=== PATIENT | female | born 1960 | race Hispanic/Latino ===

== ENCOUNTER → 2018-07-24 | Day surgery (SDC) | payer OTHER ==
[2018-07-20 17:46] LABS: ANION GAP 17.1 mmol/L (8-16); BLOOD UREA NITROGEN 13 mg/dL (7-26); BUN/CREATININE RATIO 16 (6-25); CARBON DIOXIDE 25 mmol/L (22-29); CHLORIDE 103 mmol/L (98-107); CREATININE, SERUM 0.79 mg/dL (0.57-1.11); EST GLOMERULAR FILTRATION RATE > 60 ML/MIN (60-); GLUCOSE 107 mg/dL (74-118); POTASSIUM 4.1 mmol/L (3.5-5.1); SODIUM 141 mmol/L (136-145)
[~2018-07-24] MED LIST: ALPRAZOLAM0.25 MG PO; ATORVASTATIN CA10 MG PO; BUPIVACAINE 0.25% 30ML SDV INJ ONE; CHLORDIAZEPOXID25 MG PO; CITALOPRAM; CITALOPRAM HBR20 MG PO; CLINDAMYCIN PHOS 900MG/ 50ML 50 ML IV ONE; DEXAMETHASONE SOD PHOS INJ 4 MG/ML VIAL ONE; DICYCLOMINE; DICYCLOMINE HCL10 MG PO; ELIQUIS PO; FARXIGA PO; FENOFIBRATE; FENOFIBRATE160 MG PO; FENTANYL CITRATE/PF 100MCG/2 ML INJ ONE; GABAPENTIN300 MG PO; JANUVIA25 MG; KETAMINE HCL INJ 50 MG/ML 10 ML VIAL ONE; LEXAPRO10 MG PO; LIDOCAINE HCL 2% LOCAL INJ 5 ML SDV VIAL INJ ONE; MIDAZOLAM HCL 2 MG/2 ML VIAL ONE; MUPIROCIN 2% OINT 22 GM TUBE ONE; ONDANSETRON HCL INJ 2MG/ML 2ML 2 MG/ML VIAL ONE; OXCARBAZEPINE300 MG PO; PRAVASTATIN; PRAVASTATIN PO; PROPOFOL IV EMULSION 10 MG/ML 20 ML VIAL ONE; TRAJENTA PO; [UNRECOGNIZED DRUG - OTHER]; [UNRECOGNIZED DRUG - OTHER] PO; [UNRECOGNIZED DRUG - OTHER] PO
--- OUTSIDE RECORDS SUMMARY | 2018-07-24 06:28 | XMS REPORT | Summary of Care ---
Author Author [facility] Address Unknown Phone Unavailable Encounter HQ Encntr_alias(FIN) [id number] Date(s): 11/29/15 - 11/29/15 [facility] [id number] [facility], [address] [place] [phone] Discharge Disposition: Home Attending Physician: Kenan Riggs MD Vital Signs No data available for this section Problem List No data available for this section Allergies, Adverse Reactions, Alerts No data available for this section Medications No data available for this section Results No data available for this section Immunizations No data available for this section Procedures No data available for this section Social History No data available for this section Assessment and Plan No data available for this section
--- OUTSIDE RECORDS SUMMARY | 2018-07-24 06:28 | XMS REPORT | Continuity of Care Document ---
Author Author [facility] Interface Address Unknown Phone Unavailable Problems Problem Status Onset Date Classification Date Reported Comments Source LT SHOULDER/RTC Active 04/30/2018 [facility] Cough 04/06/2018 Diagnosis 04/07/2018 [facility] Acute sinusitis 04/06/2018 Diagnosis 04/07/2018 [facility] Deep Venous Thrombosis 04/06/2018 Problem 04/07/2018 [facility] DX: I82.423=ACUTE EMBOLISM AND THROMBOSI Active 08/20/2017 [facility] Acute embolism and thrombosis of unspecified deep veins of lower extremity, bilateral 06/14/2017 09/16/2017 [facility] I82.409 *STAT* Active 06/10/2017 [facility] I82.423 NEW RIGHT LEG PAIN Active 02/28/2017 [facility] Discharge Diagnosis: Dyspnea, unspecified 12/23/2016 12/26/2016 [facility] CP Active 12/23/2016 [facility] LEG PAIN Active 11/27/2016 [facility] DVT LOWER EXT, PAIN Active 11/27/2016 [facility] Acute upper respiratory infection 11/01/2016 Diagnosis 11/01/2016 [facility] M25.531 - PAIN IN RIGHT WRIST Active 11/13/2015 [facility] Type II diabetes mellitus Active 1960 Problem 10/10/2017 [facility] Hyperlipidemia Resolved Problem 10/10/2017 [facility] Acute Suppurative Otitis Media without Spontaneous Rupture of Ear Drum Problem 11/01/2016 [facility] Acute Sinusitis Problem 11/01/2016 [facility] Acute Laryngitis Problem 11/01/2016 [facility] Acute Bronchitis Problem 11/01/2016 [facility] Allergic Rhinitis Problem 11/01/2016 [facility] NECK PAIN Active [facility] RT WRIST PAIN, SPRAIN Active [facility] ACUTE EMBOLISM AND THOMBOS UNSP DEEP VN Active [facility] PAIN, UNSPECIFIED Active [facility] Medications Medication Details Route Status Patient Instructions Ordering Provider Order Date Source Xarelto 15 mg, 1 tab, Route: PO, Drug form: TAB, Q12H, Dosing Weight 85.966, kg, Start date: 11/29/16 9:00:00 CDT, Stop date: 12/28/16 12:30:00 CDTNotes: (Same as: Xarelto) Administer with food Inactive 11/29/2016 [facility] tramadol hydrochloride 50 MG Oral Tablet 50 mg=1 tab, PO, Q6H, PRN Pain, X 5 day, # 20 tab, 0 Refill(s) Active 11/29/2016 [facility] {42 (rivaroxaban 15 MG Oral Tablet [Xarelto]) / 9 (rivaroxaban 20 MG Oral Tablet [Xarelto]) } Pack [Xarelto Kit] 1 tab, PO, BID-Meals, Take 15 mg tablets twice daily with food for 21 days. Beginning day 22,take one 20 mg tablet daily with food for the remainder of therapy., X 30 day, # 1 pkt, 0 Refill(s) Active 11/29/2016 [facility] Miralax 17 gm, 1 pkt, Route: PO, Drug form: PWDR, Daily, Dosing Weight 85.966, kg, Start date: 11/28/16 9:00:00 CDT, Duration: 30 day, Stop date: 12/27/16 9:00:00 CDTNotes: Dissolve in 8 oz of water or juice. (Same as: Miralax) No Longer Active 11/28/2016 [facility] Citalopram 30 mg, 3 tab, Route: PO, Drug form: TAB, Daily, Dosing Weight 85.455, kg, Start date: 11/28/16 9:00:00 CDT, Duration: 30 day, Stop date: 12/27/16 9:00:00 CDT No Longer Active 11/28/2016 [facility] Acetaminophen 325 MG / Hydrocodone Bitartrate 7.5 MG Oral Tablet [[place] 7.5/325] 1 tab, Route: PO, Drug Form: TAB, Dosing Weight 85.966, kg, Q6H, PRN Pain Score 6-10, Start date: 11/27/16 21:12:00 CDT, Duration: 30 day, Stop date: 12/27/16 21:11:00 CDTNotes: Same as [place] 325-7.5mg Do not exceed 4gm/day of acetaminophen. No Longer Active 11/28/2016 [facility] Morphine 2 mg, 1 mL, Route: IV, Drug form: SOLN, Q4H, Dosing Weight 85.966, kg, PRN Pain Score 6-10, Start date: 11/27/16 21:12:00 CDT, Duration: 30 day, Stop date: 12/27/16 21:11:00 CDT No Longer Active 11/28/2016 [facility] atorvastatin 80 mg, 2 tab, Route: PO, Drug form: TAB, Bedtime, Dosing Weight 85.455, kg, Start date: 11/27/16 21:00:00 CDT, Duration: 30 day, Stop date: 12/26/16 21:00:00 CDTNotes: (Same as: Lipitor) No Longer Active 11/28/2016 [facility] Acetaminophen 325 MG / Hydrocodone Bitartrate 5 MG Oral Tablet [[place] 5/325] 1 tab, Route: PO, Drug Form: TAB, Dosing Weight 85.966, kg, Q4H, PRN Pain Score 1-5, Start date: 11/27/16 17:13:00 CDT, Duration: 30 day, Stop date: 12/27/16 17:12:00 CDTNotes: (Same as: [place] 325/5) Do not exceed 4gm/day of acetaminophen. Inactive 11/27/2016 [facility] Tegretol 300 mg, 1.5 tab, Route: PO, Drug form: TAB, BID, Dosing Weight 85.455, kg, Start date: 11/27/16 17:00:00 CDT, Duration: 30 day, Stop date: 12/27/16 9:00:00 CDTNotes: With food. (Same As: Tegretol) No Longer Active 11/27/2016 [facility] Insulin regular 5 unit, Route: SUB-Q, TID-Before Meals, Dosing Weight 85.455, kg, Start date: 11/27/16 16:30:00 CDT, Duration: 30 day, Stop date: 12/27/16 11:30:00 CDT Inactive 11/27/2016 [facility] insulin aspart 5 unit, 0.05 mL, Route: SUB-Q, Drug form: SOLN, TID-Before Meals, Start date: 11/27/16 16:30:00 CDT, Duration: 30 day, Stop date: 12/27/16 11:30:00 CDTNotes: Roll in palms of hands gently; Do not sh gene vigorously. (Same as: NovoLOG) "single patient use only" WASTE: F/P - Black; E - Municipal Trash Bin Stable for 28 days at room temperature. Expires in days from Date No Longer Active 11/27/2016 [facility] Chlordiazepoxide Hydrochloride 5 MG / Clidinium bromide 2.5 MG Oral Capsule 2 cap, Route: PO, Drug Form: CAP, Dosing Weight 85.455, kg, TID-Before Meals, Start date: 11/27/16 16:30:00 CDT, Duration: 30 day, Stop date: 12/27/16 11:30:00 CDTNotes: (Same As: Librax) No Longer Active 11/27/2016 [facility] Enoxaparin 80 mg, 0.8 mL, Route: SUB-Q, Drug form: INJ, [id number], Dosing Weight 85.455, kg, Start date: 11/27/16 15:00:00 CDT, Duration: 30 day, Stop date: 12/27/16 2:00:00 CDTNotes: Nurse to ensure documentation of patient education per anticoagulation policy. (Same as: Lovenox) No Longer Active 11/27/2016 [facility] Insulin, Aspart, Human 10 unit, 0.1 mL, Route: SUB-Q, Drug form: SOLN, TID-Before Meals, Dosing Weight 85.455, kg, PRN Blood Glucose Results, Start date: 11/27/16 14:07:00 CDT, Duration: 30 day, Stop date: 12/27/16 14:06:00 CDTNotes: Roll in palms of hands gently; Do not shake vigorously. (Same as: NovoLOG) "single patient use only" WASTE: F/P - Black; E - Municipal Trash Bin Stable for 28 days at room temperature. Expires in days from Date No Longer Active 11/27/2016 [facility] Glucagon 1 mg, Route: IM, Drug form: PDR/INJ, PRN, Dosing Weight 85.455, kg, PRN Blood Glucose Results, Start date: 11/27/16 14:07:00 CDT, Duration: 30 day, Stop date: 12/27/16 14:06:00 CDT No Longer Active 11/27/2016 [facility] Dextrose 50% Syringe 12.5 gm, 25 mL, Route: IVP, Drug Form: INJ, Dosing Weight 85.455, kg, PRN, PRN Blood Glucose Results, Start date: 11/27/16 14:07:00 CDT, Duration: 30 day, Stop date: 12/27/16 14:06:00 CDT No Longer Active 11/27/2016 [facility] empagliflozin 10 MG / Linagliptin 5 MG Oral Tablet [Glyxambi] 1 tab, PO, QAM, 0 Refill(s) Active 11/27/2016 [facility] Citalopram 30 mg, PO, Daily, 0 Refill(s) Active 11/27/2016 [facility] atorvastatin 80 mg oral tablet 80 mg=1 tab, PO, Bedtime, 0 Refill(s) Active 11/27/2016 [facility] Tegretol 300 mg, PO, BID, 0 Refill(s) Active 11/27/2016 [facility] Chlordiazepoxide Hydrochloride 5 MG / Clidinium bromide 2.5 MG Oral Capsule 2 cap, PO, TID-Before Meals, 0 Refill(s) Active 11/27/2016 [facility] Lovenox 90 mg, 0.9 mL, Route: SUB-Q, Drug form: INJ, ONCE, Dosing Weight 85.455, kg, Priority: STAT, Start date: 11/27/16 13:20:00 CDT, Stop date: 11/27/16 13:20:00 CDTNotes: Nurse to ensure documentation of patient education per anticoagulation policy. (Same as: Lovenox) Inactive 11/27/2016 [facility] Morphine 4 mg, Route: IVP, ONCE, Dosing Weight 85.455, kg, Priority: STAT, Start date: 11/27/16 11:44:00 CDT, Stop date: 11/27/16 11:44:00 CDT Inactive 11/27/2016 [facility] Zofran 4 mg, Route: IVP, Drug form: INJ, ONCE, Dosing Weight 85.455, kg, Priority: STAT, Start date: 11/27/16 9:45:00 CDT, Stop date: 11/27/16 9:45:00 CDT Inactive 11/27/2016 [facility] Morphine 4 mg, Route: IVP, ONCE, Dosing Weight 85.455, kg, Priority: STAT, Start date: 11/27/16 9:45:00 CDT, Stop date: 11/27/16 9:45:00 CDT Inactive 11/27/2016 [facility] Alprazolam 0.25 MG Oral Tablet alprazolam 0.25 mg tablet Active [facility] atorvastatin 80 MG Oral Tablet atorvastatin 80 mg tablet Active [facility] Chlordiazepoxide Hydrochloride 5 MG / Clidinium bromide 2.5 MG Oral Capsule chlordiazepoxide-clidinium 5 mg-2.5 mg capsule TAKE ONE CAPSULE BY MOUTH EVERY 6 HOURS Active [facility] Diclofenac Sodium 15 MG/ML Topical Solution diclofenac 1.5 % topical drops Active [facility] apixaban 5 MG Oral Tablet [Eliquis] Eliquis 5 mg tablet TAKE ONE (1) TABLET(S) BY MOUTH TWICE A DAY. Active [facility] [id number] 0.3 ML Epinephrine 1 MG/ML Auto-Injector [Epipen] EpiPen 2-Danny 0.3 mg/0.3 mL injection, auto-injector Active [facility] Escitalopram 20 MG Oral Tablet escitalopram 20 mg tablet Active [facility] dapagliflozin 5 MG Oral Tablet [Farxiga] Farxiga 5 mg tablet TAKE ONE (1) TABLET(S) BY MOUTH DAILY. Active [facility] Fluticasone propionate 0.05 MG/ACTUAT Metered Dose Nasal [place] fluticasone 50 mcg/actuation nasal spray,suspension Inhale 2 sprays to each nostril 2 x day at bedtime x 10 days Active [facility] gabapentin 300 MG Oral Capsule gabapentin 300 mg capsule TAKE ONE (1) CAPSULE(S) BY MOUTH THREE TIMES A DAY. Active [facility] empagliflozin 10 MG Oral Tablet [Jardiance] Jardiance 10 mg tablet Active [facility] OneTouch Ultra Test strips OneTouch Ultra Test strips Active [facility] oxcarbazepine 300 MG Oral Tablet oxcarbazepine 300 mg tablet TAKE ONE (1) TABLET(S) BY MOUTH TWICE A DAY. Active [facility] benzonatate 100 MG Oral Capsule [Tessalon Perles] Tessalon Perles 100 mg capsule Take 2 capsules 3 times a day by oral route as needed for 10 days. Active [facility] Linagliptin 5 MG Oral Tablet [Tradjenta] Tradjenta 5 mg tablet TAKE ONE (1) TABLET(S) BY MOUTH DAILY. Active [facility] tramadol hydrochloride 50 MG Oral Tablet tramadol 50 mg tablet TAKE ONE (1) TABLET(S) BY MOUTH TWICE A DAY. Active [facility] Desonide 0.5 MG/ML Topical Foam [Verdeso] Verdeso 0.05 % topical foam APPLY A THIN LAYER TO FACE EVERY NIGHT AT BEDTIME FOR SEBORRHEA Active [facility] Azithromycin 250 MG Oral Tablet Zithromax Z-Danny 250 mg tablet TAKE 2 TABLETS (500 MG) BY ORAL ROUTE ONCE DAILY FOR 1 DAY THEN 1 TABLET (250 MG) BY ORAL ROUTE ONCE DAILY FOR 4 DAYS Active [facility] benzonatate 100 MG Oral Capsule benzonatate 100 mg capsule Take 1 capsule 3 times a day by oral route as needed. Active [facility] benzonatate 200 MG Oral Capsule benzonatate 200 mg capsule TAKE ONE (1) CAPSULE(S) BY MOUTH THREE TIMES A DAY NEEDED. Active [facility] Brompheniramine Maleate 0.4 MG/ML / Dextromethorphan Hydrobromide 2 MG/ML / Pseudoephedrine Hydrochloride 6 MG/ML Oral Solution [Bromfed DM] Bromfed DM 2 mg-30 mg-10 mg/5 mL syrup Take 10 mL every 4 hours by oral route as needed. Active [facility] Carbamazepine 200 MG Oral Tablet carbamazepine 200 mg tablet Active [facility] Citalopram 40 MG Oral Tablet [Celexa] Celexa 40 mg tablet Active [facility] Citalopram 20 MG Oral Tablet citalopram 20 mg tablet Active [facility] gabapentin 100 MG Oral Capsule gabapentin 100 mg capsule Active [facility] empagliflozin 10 MG / Linagliptin 5 MG Oral Tablet [Glyxambi] Glyxambi 10 mg-5 mg tablet TAKE ONE (1) TABLET(S) BY MOUTH EVERY MORNING. Active [facility] levocetirizine dihydrochloride 5 MG Oral Tablet levocetirizine 5 mg tablet TAKE ONE (1) TABLET(S) BY MOUTH EVERY DAY AT BEDTIME FOR 14 DAYS. Active [facility] Naproxen 500 MG Oral Tablet naproxen 500 mg tablet Active [facility] Budesonide 0.16 MG/ACTUAT / formoterol fumarate 0.0045 MG/ACTUAT Metered Dose Inhaler Symbicort 160 mcg-4.5 mcg/actuation HFA aerosol inhaler Active [facility] Allergies, Adverse Reactions, Alerts Substance Category Reaction Severity Reaction type Status Date Reported Comments Source Amoxicillin Allergy to substance 04/20/2015 [facility] amoxicillin Assertion Drug allergy Active [facility] Immunizations Immunization Date Given Site Status Last Updated Comments Source influenza, injectable, quadrivalent 03/23/2018 completed [facility] influenza, unspecified formulation 03/02/2016 completed [facility] Tdap 06/02/2011 completed [facility] Results Order Name Results Value Reference Range Date Interpretation Comments Source Bone Density DXA Dual Energy MA Bone Density DXA Dual Energy MA BONE DENSITY ASSESSMENT: 05/05/2018 CLINICAL DATA: Post menopausal. Other Specified Disorders Of Bone Density And Structure, Unspecified Site/M85.80 RISK FACTORS: race. FINDINGS: Bone density evaluation was performed 05/05/2018 on the right femur neck using a Hologic unit. The BMD average for the exam is 0.671 g/cm2. The T-score is - 1.60 and the Z-score is -0.40. This matches the World Health Organization's criteria for osteopenia and places the patient at a medium risk for fracture. An additional bone density evaluation was performed 05/05/2018 on the left femur neck using a Hologic unit. The BMD average for the exam is 0.669 g/cm2. The T- score is -1.60 and the Z-score is -0.40. This matches the World Health Organization's criteria for osteopenia and places the patient at a medium risk for fracture. An additional bone density evaluation was performed 05/05/2018 on the right hip using a Hologic unit. The BMD average for the exam is 0.778 g/cm2. The T-score is -1.30 and the Z-score is -0.50. This matches the World Health Organization's criteria for osteopenia and places the patient at a medium risk for fracture. An additional bone density evaluation was performed 05/05/2018 on the left hip using a Hologic unit. The BMD average for the exam is 0.801 g/cm2. The T-score is -1.20 and the Z-score is -0.30. This matches the World Health Organization's criteria for osteopenia and places the patient at a medium risk for fracture. An additional bone density evaluation was performed 05/05/2018 on the AP L1-L4 region of spine using a Hologic unit. The BMD average for the exam is 0.850 g/cm2. The T-score is -1.80 and the Z-score is -0.50. This matches the World Health Organization's criteria for osteopenia and places the patient at a medium risk for fracture. FRAX 10 year probability of major osteoporotic fracture is 7.6% and hip fracture is 0.7%. IMPRESSION: OSTEOPENIA Patient is at medium risk for fracture. This exam was interpreted at [id number] for JACQUIE Hoyos 15. Douglas Zarco M.D. cm/penrad:05/05/2018 14:25:50 Statement Clerks Supervisor(s): Suyapa BERRY(R)(M), [facility] 05/05/2018 - - Read by: Eliud Abarca MD Dictated Date/time: 05/05/18 14:25 Electronically Signed by: Eliud Abarca MD 05/05/18 14:25 FINAL REPORT [facility] Shoulder series DX Shoulder series DX EXAM: XR LEFT SHOULDER 3 VIEWS DATE: 04/28/2018 11:02 AM ENTERPRISE SOFTWARE ENGINEER INDICATION: - M75.82 Other shoulder lesions, left shoulder COMPARISON: None. TECHNIQUE: AP views in internal and external rotation, and a scapular Y view of the shoulder FINDINGS: No fracture or malalignment is identified. The humeral head is centered within the glenoid fossa. The AC joint and CC interval are congruent. Mild diffuse osteopenia. Mild degenerative changes of acromioclavicular joint. No soft tissue abnormality is identified. IMPRESSION: No acute findings. 04/28/2018 - - This report was dictated by a Pathology Collector/Fellow/Physician Motor Grader Operator. I have personally reviewed the images as well as the interpretation and agree with the findings. Read by: Mary Maharaj MD Resident/Fellow/Physician Motor Grader Operator: Mary Maharaj MD Dictated Date/time: 04/28/18 11:27 Electronically Signed by: Mu Duff MD 04/28/18 13:24 FINAL REPORT [facility] Ext Lower Venous Doppler Bilat US Ext Lower Venous Doppler Bilat US Clinical Indication: - I82.423 Acute embolism and thrombosis of iliac vein, bilateral; Comparison: None TECHNIQUE: Sonographic evaluation of the bilateral common femoral, superficial femoral, popliteal, and posterior tibial/calf veins veins was performed using high resolution B-mode imaging, along with pulse and color Doppler imaging. FINDINGS: Mildly echogenic, non-occlusive thrombus remains in the common femoral vein extending into the superior segment of the greater saphenous vein. The burden of thrombus appears decreased. Normal compressibility, phasic flow, and variation with augmentation is seen in the remaining interrogated veins. No echogenic thrombus is appreciated. IMPRESSION: 1. 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 A portion of nonocclusive DVT extends to the superior segment of the greater saphenous vein. 2. No acute DVT of the bilateral legs. JACQUIE: [id number] 10/07/2017 - - Read by: Moe Cagle MD Dictated Date/time: 10/07/17 14:05 Electronically Signed by: Moe Cagle MD 10/07/17 14:10 FINAL REPORT [facility] Ext Lower Venous Doppler Bilat US Ext Lower Venous Doppler Bilat US Exam: Ext Lower Venous Doppler Bilat US Clinical Indication: - DVT. Comparison: 02/28/2017. TECHNIQUE: Sonographic evaluation of the bilateral lower extremity veins was performed using high resolution B-mode imaging, along with pulse and color Doppler imaging. FINDINGS: Right lower extremity: The common femoral vein, superficial femoral vein, popliteal vein and visualized posterior tibial/calf veins are patent. There is no echogenic debris to suggest deep venous thrombosis. The saphenofemoral junction is unremarkable. Left lower extremity: Multiple echogenic thrombus within the left common femoral vein. The vein is patent with color flow noted. The appearance is similar to the previous exam. The Superficial femoral vein, popliteal vein and visualized posterior tibial/calf veins are patent. There is no echogenic debris to suggest deep venous thrombosis. The saphenofemoral junction is unremarkable. IMPRESSION: 1. Echogenic thrombus within the left common femoral vein, unchanged from the previous study. Otherwise unremarkable bilateral lower extremity venous duplex examination. REFERENCE: Deep veins include: common femoral vein, superficial femoral vein (also can be referred to as "femoral vein"), popliteal vein, posterior tibial vein Superficial veins include: greater and lesser saphenous veins SL: MGLASER-M 06/10/2017 - - Read by: Сергей Narvaez MD Dictated Date/time: 06/10/17 16:39 Electronically Signed by: Сергей Narvaez MD 06/10/17 16:41 FINAL REPORT [facility] Ext Lower Venous Doppler Bilat US Ext Lower Venous Doppler Bilat US Patient Name: CHEKO MACHADO : 1960; Age: 57 years y/o Female MR: [id number] * BILATERAL LOWER EXTREMITY VENOUS DOPPLER HISTORY: Right lower extremity pain, history of deep venous thrombosis. Comparison: 11/27/2016. A computed tomography scan of the abdomen and pelvis of 11/27/2016 was reviewed. TECHNIQUE: Sonographic evaluation of the bilateral lower extremity veins was performed from the popliteal fossa to the inguinal ligament using high resolution grayscale B- mode imaging, along with pulse (spectral) and color Doppler imaging. FINDINGS: * Right lower extremity: There is a small amount of thrombus within the upper portion of the right greater saphenous vein. This may represent residual thrombosis the patient had thrombus throughout the right greater saphenous vein of 11/27/2016. There is no evidence of deep venous thrombosis on the right. The patient previously had deep venous thrombosis in the right common femoral vein and proximal and mid right superficial femoral vein which appears to have resolved without sequela. The right common femoral vein, superficial femoral vein, popliteal vein and visualized posterior tibial/calf veins are patent and compressible with good flow. There is good spontaneous phasic venous flow with good augmentation with calf compression. This constitutes a normal examination. * Left lower extremity: There is thrombus within the upper portion of the left greater saphenous vein. This may represent the residual of previous thrombus which involves a more extensive area of the left greater saphenous vein. There is also a small amount of thrombus extending into the left common femoral vein. This also appears to be the sequela of previous venous thrombosis in this region as a similar amount of thrombus was noted in this region on the prior study. The remainder of the left common femoral vein, the left superficial femoral vein, popliteal vein and visualized posterior tibial/calf veins are patent and compressible with good flow. There is good spontaneous phasic venous flow with good augmentation with calf compression. 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 Please refer to that report. IMPRESSION: 1. Thrombus noted within the right deep venous system on the prior study 11/27/2016 has resolved without evidence of sequela. 2. There is a small amount of thrombus extending into the left common femoral vein from the saphenofemoral junction which appears similar to the prior study. The remainder of the deep venous system is patent. 3. There is a small amount of thrombus within each greater saphenous vein which appears to represent an improvement from the prior study and therefore probably represents residual thrombus which has not lysed. 4. There is no definite evidence of acute deep venous thrombosis. 5. 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 Please refer to that report. SL: DEJAN 02/28/2017 - - Read by: Jamar Maza MD Dictated Date/time: 02/28/17 18:23 Electronically Signed by: Jamar Maza MD 02/28/17 18:35 FINAL REPORT [facility] URINE AND STOOL UA Urobilinogen <=1.0 mg/dL 0.1 - 1.0 12/24/2016 [facility] URINE AND STOOL UA Nitrite Negative (12/23/16 7:19 PM) Negative 12/24/2016 [facility] URINE AND STOOL UA Leuk Est Negative (12/23/16 7:19 PM) Negative 12/24/2016 [facility] URINE AND STOOL UA Sq Epi Occasional /LPF Few /LPF 12/24/2016 [facility] URINE AND STOOL UA WBC null 0 - 5 12/24/2016 [facility] URINE AND STOOL UA Bili Negative *NA* (12/23/16 7:19 PM) Negative 12/24/2016 [facility] URINE AND STOOL UA Blood Negative (12/23/16 7:19 PM) Negative 12/24/2016 [facility] URINE AND STOOL UA Ketones Negative mg/dL Negative mg/dL 12/24/2016 [facility] URINE AND STOOL UA Glucose 500 mg/dL Negative mg/dL 12/24/2016 [facility] URINE AND STOOL UA Protein Negative mg/dL Negative mg/dL 12/24/2016 [facility] URINE AND STOOL UA pH 6.0 5.0 - 8.0 12/24/2016 [facility] URINE AND STOOL UA Color Ltyellow 12/24/2016 [facility] URINE AND STOOL UA Spec Grav 1.022 <=1.030 12/24/2016 [facility] URINE AND STOOL UA Turbidity Clear (12/23/16 7:19 PM) Clear 12/24/2016 [facility] CARDIAC ENZYMES Troponin-I 0.03 ng/mL 0.00 - 0.40 12/23/2016 [facility] CHEM PANEL ALT 73 unit/L 0 - 65 12/23/2016 [facility] CHEM PANEL Total Protein 8.0 g/dL 6.4 - 8.4 12/23/2016 [facility] CHEM PANEL AST 69 unit/L 0 - 37 12/23/2016 [facility] CHEM PANEL Albumin Lvl 4.4 g/dL 3.5 - 5.0 12/23/2016 [facility] CHEM PANEL Alk Phos 137 unit/L 39 - 136 12/23/2016 [facility] CHEM PANEL Bili Total 0.5 mg/dL 0.2 - 1.3 12/23/2016 [facility] CHEM PANEL BUN 10 mg/dL 7 - 12/23/2016 [facility] CHEM PANEL Creatinine Lvl 0.82 mg/dL 0.50 - 1.40 12/23/2016 [facility] CHEM PANEL Glucose Lvl 126 mg/dL 70 - 99 12/23/2016 [facility] CHEM PANEL Calcium Lvl 9.8 mg/dL 8.5 - 10.5 12/23/2016 [facility] CHEM PANEL CO2 29 meq/L 24 - 32 12/23/2016 [facility] CHEM PANEL Chloride Lvl 106 meq/L 95 - 109 12/23/2016 [facility] CHEM PANEL Potassium Lvl 3.9 meq/L 3.5 - 5.1 12/23/2016 [facility] CHEM PANEL Sodium Lvl 145 meq/L 135 - 145 12/23/2016 [facility] CHEM PANEL eGFR 80 mL/min/1.73m2 12/23/2016 Result Comment: The eGFR is calculated using the CKD-EPI formula. In most young, healthy individuals the eGFR will be >90 mL/min/1.73m2. The eGFR declines with age. An eGFR of 60-89 may be normal in some populations, particularly the elderly, for whom the CKD-EPI formula has not been extensively validated. Use of the eGFR is not recommended in the following populations: Individuals with unstable creatinine concentrations, including patients and those with serious co-morbid conditions. Patients with extremes in muscle mass or diet. The data above are obtained from the National Kidney Disease Education Program (NKDEP) which additionally recommends that when the eGFR is used in patients with extremes of body mass index for purposes of drug dosing, the eGFR should be multiplied by the estimated BMI. [facility] CHEM PANEL B/C Ratio 12 6 - 25 12/23/2016 [facility] CHEM PANEL Globulin 3.6 g/dL 2.7 - 4.2 12/23/2016 [facility] CHEM PANEL AGAP 13.9 meq/L 10.0 - 20.0 12/23/2016 [facility] CHEM PANEL A/G Ratio 1.2 0.7 - 1.6 12/23/2016 [facility] HEMATOLOGY PTT 34.6 s 22.9 - 35.8 12/23/2016 [facility] PT 13.1 s 12.0 - 14.7 12/23/2016 [facility] INR 0.97 0.85 - 1.17 12/23/2016 [facility] Basophils 0.4 % 0.0 - 1.0 12/23/2016 [facility] Segs-Bands # 3.3 K/CMM 1.5 - 8.1 12/23/2016 [facility] Lymphocytes # 2.6 K/CMM 1.0 - 5.5 12/23/2016 [facility] Monocytes # 0.4 K/CMM 0.0 - 0.8 12/23/2016 [facility] Eosinophils # 0.1 K/CMM 0.0 - 0.5 12/23/2016 [facility] Segs 51.4 % 45.0 - 75.0 12/23/2016 [facility] Lymphocytes 40.5 % 20.0 - 40.0 12/23/2016 [facility] Eosinophils 1.5 % 0.0 - 4.0 12/23/2016 [facility] Monocytes 6.2 % 2.0 - 12.0 12/23/2016 [facility] Hct 44.2 % 36.0 - 48.0 12/23/2016 [facility] Hgb 14.6 g/dL 12.0 - 16.0 12/23/2016 [facility] RBC 4.84 M/CMM 4.20 - 5.40 12/23/2016 [facility] WBC 6.4 K/CMM 3.7 - 10.4 12/23/2016 [facility] Platelet 185 K/CMM 133 - 450 12/23/2016 [facility] MCH 30.2 pg 27.0 - 31.0 12/23/2016 [facility] MCV 91.4 fL 80.0 - 98.0 12/23/2016 [facility] MCHC 33.1 g/dL 32.0 - 36.0 12/23/2016 [facility] RDW 13.5 % 11.5 - 14.5 12/23/2016 [facility] MPV 7.5 fL 7.4 - 10.4 12/23/2016 [facility] Chest Pulmonary Embolism CTA Chest Pulmonary Embolism CTA CTA PULMONARY ARTERIES AND ROUTINE CT CHEST HISTORY: ; Shortness of breath; TECHNIQUE: Thin collimation axial images of the pulmonary arteries and routine CT chest with IV contrast. Coronal and sagittal reformatted images were utilized. 3-D reconstructions were obtained. COMPARISON: Chest radiography dated 12/23/2016 FINDINGS: Examination limited by respiratory motion artifact. No evidence of pulmonary embolism. Thoracic aorta demonstrates mild calcification but is otherwise normal. No mediastinal mass, fluid collection, or adenopathy. Heart size normal. No pericardial effusion. Lungs are clear. No pleural effusion or pneumothorax. Visualized portion of the upper abdominal contents is normal. The osseous structures are unremarkable. IMPRESSION: 1. Examination limited by respiratory motion artifact. 2. No evidence of pulmonary embolism. 3. Normal study. JACQUIE: MARS 12/23/2016 - - Read by: Kenan Estrada MD Dictated Date/time: 12/23/16 20:43 Electronically Signed by: Kenan Estrada MD 12/23/16 20:47 FINAL REPORT [facility] Chest 2 views DX Chest 2 views DX Patient Name: CHEKO MACHADO : 1960; Age: 56 years Female MR: [id number] Study: Chest 2 views DX Order Time: 12/23/2016 2:28 PM CDT CLINICAL INDICATION: Cough and fever - sob COMPARISON: Chest radiograph on 04/02/2016 FINDINGS: Lines: None. Lungs: The lungs are grossly clear. Mediastinum: The cardiac silhouette is within normal limits of size. Midline trachea. Bones and soft tissues: No acute abnormalities. IMPRESSION: No acute cardiopulmonary abnormalities. SL: [id number] 12/23/2016 - - Read by: Cruz Alfaro MD Dictated Date/time: 12/23/16 14:42 Electronically Signed by: Cruz Alfaro MD 12/23/16 14:42 FINAL REPORT [facility] Lymphocytes 35.4 % 20.0 - 40.0 11/28/2016 [facility] Monocytes 6.2 % 2.0 - 12.0 11/28/2016 [facility] Eosinophils 2.7 % 0.0 - 4.0 11/28/2016 [facility] Basophils 0.3 % 0.0 - 1.0 11/28/2016 [facility] Segs 55.4 % 45.0 - 75.0 11/28/2016 [facility] Segs-Bands # 3.0 K/CMM 1.5 - 8.1 11/28/2016 [facility] Lymphocytes # 1.9 K/CMM 1.0 - 5.5 11/28/2016 [facility] Monocytes # 0.3 K/CMM 0.0 - 0.8 11/28/2016 [facility] Eosinophils # 0.1 K/CMM 0.0 - 0.5 11/28/2016 [facility] WBC 5.3 K/CMM 3.7 - 10.4 11/28/2016 [facility] MCH 31.1 pg 27.0 - 31.0 11/28/2016 [facility] MCHC 33.2 g/dL 32.0 - 36.0 11/28/2016 [facility] MPV 7.5 fL 7.4 - 10.4 11/28/2016 [facility] Hct 37.5 % 36.0 - 48.0 11/28/2016 [facility] MCV 93.5 fL 80.0 - 98.0 11/28/2016 [facility] Hgb 12.5 g/dL 12.0 - 16.0 11/28/2016 [facility] RBC 4.01 M/CMM 4.20 - 5.40 11/28/2016 [facility] Platelet 161 K/CMM 133 - 450 11/28/2016 [facility] RDW 13.6 % 11.5 - 14.5 11/28/2016 [facility] Lup Interp Negative for lupus anticoagulant by DRVV screen and hexagonal phospholipidneutralization test. If there is a strong clinical suspicion of lupus anticoagulant,additional testing, to include repeat studies at a clinically appropriate interval and anticardiolipin antibody assays, is recommended.Interpretation performed at [facility]. 11/28/2016 [facility] Hex Phos N Negative (11/28/16 3:59 AM) Negative 11/28/2016 [facility] HEMATOLOGY dRVV Ratio 1.09 <=1.20 11/28/2016 [facility] IMMUNOLOGY Homocyst Tot 9.0 umol/L 3.7 - 13.9 11/28/2016 [facility] IMMUNOLOGY Cardiolipin IgM 1.2 MPL-U/mL <=19.9 MPL 11/28/2016 [facility] IMMUNOLOGY Cardiolipin IgA 0.9 APL-U/mL <=19.9 APL 11/28/2016 [facility] Cardiolipin IgG null <=19.9 GPL 11/28/2016 [facility] URINE AND STOOL UA Sq Epi Occasional /LPF Few /LPF 11/27/2016 [facility] URINE AND STOOL UA Blood Negative (11/27/16 9:36 AM) Negative 11/27/2016 [facility] URINE AND STOOL UA Nitrite Negative (11/27/16 9:36 AM) Negative 11/27/2016 [facility] URINE AND STOOL UA Leuk Est Negative (11/27/16 9:36 AM) Negative 11/27/2016 [facility] URINE AND STOOL UA Glucose 500 mg/dL Negative mg/dL 11/27/2016 [facility] URINE AND STOOL UA Ketones Negative mg/dL Negative mg/dL 11/27/2016 [facility] URINE AND STOOL UA Bili Negative *NA* (11/27/16 9:36 AM) Negative 11/27/2016 [facility] URINE AND STOOL UA Protein Negative mg/dL Negative mg/dL 11/27/2016 [facility] URINE AND STOOL UA Turbidity Clear (11/27/16 9:36 AM) Clear 11/27/2016 [facility] URINE AND STOOL UA Spec Grav 1.037 <=1.030 11/27/2016 [facility] URINE AND STOOL UA pH 6.0 5.0 - 8.0 11/27/2016 [facility] URINE AND STOOL UA Urobilinogen <=1.0 mg/dL 0.1 - 1.0 11/27/2016 [facility] URINE AND STOOL UA Color Ltyellow 11/27/2016 [facility] CHEM PANEL Lipase Lvl 161 unit/L 73 - 393 11/27/2016 [facility] CHEM PANEL A/G Ratio 1.2 0.7 - 1.6 11/27/2016 [facility] CHEM PANEL B/C Ratio 13 6 - 25 11/27/2016 [facility] CHEM PANEL AGAP 13.6 meq/L 10.0 - 20.0 11/27/2016 [facility] CHEM PANEL Globulin 3.5 g/dL 2.7 - 4.2 11/27/2016 [facility] CHEM PANEL eGFR 73 mL/min/1.73m2 11/27/2016 Result Comment: The eGFR is calculated using the CKD-EPI formula. In most young, healthy individuals the eGFR will be >90 mL/min/1.73m2. The eGFR declines with age. An eGFR of 60-89 may be normal in some populations, particularly the elderly, for whom the CKD-EPI formula has not been extensively validated. Use of the eGFR is not recommended in the following populations: Individuals with unstable creatinine concentrations, including patients and those with serious co-morbid conditions. Patients with extremes in muscle mass or diet. The data above are obtained from the National Kidney Disease Education Program (NKDEP) which additionally recommends that when the eGFR is used in patients with extremes of body mass index for purposes of drug dosing, the eGFR should be multiplied by the estimated BMI. [facility] CHEM PANEL Bili Total 0.5 mg/dL 0.2 - 1.3 11/27/2016 [facility] CHEM PANEL ALT 22 unit/L 0 - 65 11/27/2016 [facility] CHEM PANEL AST 20 unit/L 0 - 37 11/27/2016 [facility] CHEM PANEL Alk Phos 157 unit/L 39 - 136 11/27/2016 [facility] CHEM PANEL Chloride Lvl 102 meq/L 95 - 109 11/27/2016 [facility] CHEM PANEL Calcium Lvl 8.9 mg/dL 8.5 - 10.5 11/27/2016 [facility] CHEM PANEL CO2 26 meq/L 24 - 32 11/27/2016 [facility] CHEM PANEL Total Protein 7.6 g/dL 6.4 - 8.4 11/27/2016 [facility] CHEM PANEL Glucose Lvl 136 mg/dL 70 - 99 11/27/2016 [facility] CHEM PANEL Albumin Lvl 4.1 g/dL 3.5 - 5.0 11/27/2016 [facility] CHEM PANEL Creatinine Lvl 0.89 mg/dL 0.50 - 1.40 11/27/2016 [facility] CHEM PANEL BUN 12 mg/dL 7 - 22 11/27/2016 [facility] CHEM PANEL Potassium Lvl 3.6 meq/L 3.5 - 5.1 11/27/2016 [facility] CHEM PANEL Sodium Lvl 138 meq/L 135 - 145 11/27/2016 [facility] HEMATOLOGY Segs 64.8 % 45.0 - 75.0 11/27/2016 [facility] HEMATOLOGY Monocytes 7.3 % 2.0 - 12.0 11/27/2016 [facility] HEMATOLOGY Eosinophils 1.9 % 0.0 - 4.0 11/27/2016 [facility] HEMATOLOGY Lymphocytes # 1.5 K/CMM 1.0 - 5.5 11/27/2016 [facility] HEMATOLOGY Basophils 0.4 % 0.0 - 1.0 11/27/2016 [facility] HEMATOLOGY Lymphocytes 25.6 % 20.0 - 40.0 11/27/2016 [facility] HEMATOLOGY Segs-Bands # 3.8 K/CMM 1.5 - 8.1 11/27/2016 [facility] Monocytes # 0.4 K/CMM 0.0 - 0.8 11/27/2016 [facility] HEMATOLOGY Eosinophils # 0.1 K/CMM 0.0 - 0.5 11/27/2016 [facility] INR 0.97 0.85 - 1.17 11/27/2016 [facility] PTT 28.0 s 22.9 - 35.8 11/27/2016 [facility] PT 13.1 s 12.0 - 14.7 11/27/2016 [facility] RDW 13.1 % 11.5 - 14.5 11/27/2016 [facility] MPV 6.8 fL 7.4 - 10.4 11/27/2016 [facility] Platelet 154 K/CMM 133 - 450 11/27/2016 [facility] MCHC 33.8 g/dL 32.0 - 36.0 11/27/2016 [facility] Hgb 13.0 g/dL 12.0 - 16.0 11/27/2016 [facility] RBC 4.21 M/CMM 4.20 - 5.40 11/27/2016 [facility] MCH 30.9 pg 27.0 - 31.0 11/27/2016 [facility] MCV 91.6 fL 80.0 - 98.0 11/27/2016 [facility] WBC 5.8 K/CMM 3.7 - 10.4 11/27/2016 [facility] Hct 38.5 % 36.0 - 48.0 11/27/2016 [facility] ED Abdomen/Pelvis IV contrast only CT ED Abdomen/Pelvis IV contrast only CT Patient Name: CHEKO MACHADO : 1960; Age: 56 years Female MR: [id number] Study: ED Abdomen/Pelvis IV contrast only CT 11/27/2016 9:23 AM CDT CLINICAL INDICATION: ct dlp dose 2034.95 mGycm 100cc omni iv - suprapubic pain, hx of "blood clots" COMPARISON: Lower extremity ultrasound on 11/27/2016 TECHNIQUE: Multidetector CT imaging of the abdomen and pelvis was performed from the diaphragm through the lesser trochanters WITH IV contrast. Coronal and sagittal reconstructions were generated and reviewed. FINDINGS: Lower thorax: Clear. Hepatobiliary: Hepatic steatosis. Unremarkable gallbladder. Pancreas: No focal mass or ductal dilatation. Spleen: No splenomegaly. Adrenals: No nodules. Kidneys: No hydronephrosis or renal stones. Subcentimeter hypodense lesion within the left kidney, likely a cyst. Pelvic organs: Absent uterus. Nondistended bladder. Peritoneum/Retroperitoneum: No free air or free fluid. Lymph nodes: No lymphadenopathy. Vessels: IVC filter noted. One of the superior struts of the filter appears to abut the duodenum. Large filling defect associated with calcifications noted within the infrarenal IVC. Numerous large varicose veins within the lower abdominal wall, majority of which appear thrombosed. GI: No significant bowel thickening or dilatation. The appendix is not definitively visualized. Bones and soft tissues: Degenerative changes of the lumbar spine. Mild subcutaneous stranding within the lower abdominal wall. 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 One of the superior filter struts abuts the duodenum. Numerous large varicose veins within the lower abdominal wall, some of which appear thrombosed. Mild adjacent subcutaneous stranding may indicate a thrombophlebitis. These enlarged varicose veins likely developed due to the chronic IVC occlusion. Suspect chronic venous occlusion of the bilateral iliac system as well. SL: [id number] 11/27/2016 - - Read by: Cruz Alfaro MD Dictated Date/time: 11/27/16 11:45 Electronically Signed by: Cruz Alfaro MD 11/27/16 12:04 FINAL REPORT [facility] Ext Lower Venous Doppler Bilat US Ext Lower Venous Doppler Bilat US BILATERAL LOWER EXTREMITY ULTRASOUND HISTORY: Bilateral lower extremity pain and swelling right greater than left; history of deep vein thrombosis COMPARISON: None available. TECHNIQUE: Sonographic evaluation of the bilateral lower extremity veins was performed using high resolution B-mode imaging, along with pulse and color Doppler imaging. RIGHT LOWER EXTREMITY: There is echogenic noncompressible thrombus within the common femoral vein and proximal and mid superficial femoral vein. There is also noncompressible thrombus throughout the proximal, mid, and distal greater saphenous vein. The distal superficial femoral vein, popliteal vein and visualized posterior tibial/calf veins are patent and compressible. LEFT LOWER EXTREMITY: Echogenic noncompressible thrombus is seen within the proximal greater saphenous vein. The mid and distal greater saphenous vein are patent and compressible. The common femoral vein, femoral vein, popliteal vein and visualized posterior tibial/calf veins are patent. IMPRESSION: 1. Deep vein thrombosis within the right common femoral vein and proximal and mid superficial femoral vein. 2. Thrombus throughout the right greater saphenous vein. 3. Thrombus within the proximal left greater saphenous vein. SL: MARS 11/27/2016 - - Read by: Kenan Estrada MD Dictated Date/time: 11/27/16 10:48 Electronically Signed by: Kenan Estrada MD 11/27/16 10:52 FINAL REPORT [facility] Brain w/wo contrast CT Brain w/wo contrast CT EXAM: CT BRAIN WITHOUT AND WITH CONTRAST DATE: 04/09/2016 10:12 AM [employer] INDICATION: G50.0 Trigeminal neuralgia COMPARISON: None TECHNIQUE: Axial imaging of the brain was acquired from the vertex to the skull base prior to and following intravenous administration of contrast. IV contrast: 100 mL of Omnipaque 300 FINDINGS: No acute intracranial hemorrhage or extra-axial collection. There is no abnormal parenchymal attenuation or enhancement. No hydrocephalus, midline shift, or herniation. Minimal lobular mucosal opacification in the sphenoid sinus, otherwise the imaged portions of the paranasal sinuses and tympanomastoid cavities are clear. Bilateral pancho bullosa. Calvarium and skull base are intact. IMPRESSION: Unremarkable CT of the brain. 04/09/2016 - - Read by: Chet Perez MD Dictated Date/time: 04/09/16 11:49 Electronically Signed by: Chet Perez MD 04/09/16 11:56 FINAL REPORT [facility] Chest 2 views DX Chest 2 views DX EXAM: XR CHEST 2 VIEWS DATE: 04/02/2016 12:00 PM CDT INDICATION: J98.01 Acute bronchospasm COMPARISON: None TECHNIQUE: PA and lateral chest radiographs FINDINGS: A focus of linear scarring is seen in the left mid lung on the PA view. No other lung parachymal or pleural abnormalities are seen. Jamila and pulmonary vasculature are normal. Cardiomediastinal silhouette is normal in appearance. No acute bony abnormality is identified. IMPRESSION: No acute cardiopulmonary abnormality. Minimal linear scarring in the left mid lung on the PA view. 04/02/2016 - - Read by: Myke Salinas MD Dictated Date/time: 04/02/16 12:10 Electronically Signed by: Myke Salinas MD 04/02/16 12:11 FINAL REPORT [facility] Sinus wo contrast CT Sinus wo contrast CT EXAM: CT SINUS WITHOUT CONTRAST DATE: 03/28/2016 3:11 PM CDT INDICATION: J01.00 Acute maxillary sinusitis, unspecified COMPARISON: None TECHNIQUE: Axial noncontrast CT images of the sinuses, with coronal and sagittal reformats. IV contrast: None. Discussion: Polypoid mucosal thickening in the left maxillary sinus without obstruction of its drainage pathway. Trace mucosal thickening in the right maxillary sinus without obstruction of its drainage pathway. Trace mucosal thickening in the sphenoid sinuses without obstruction of their ostia. Remaining paranasal sinuses are clear. No nasal cavity masses. Rightward deviation of the nasal septum with rightward spur without contacting the mucosa of the middle and inferior turbinates. Bilateral middle turbinates are pneumatized. Lamina papyracea are intact. Ethmoidal roofs are roughly symmetric. Trace left mastoid effusion. IMPRESSION: Polypoid mucosal thickening in the left maxillary sinus without obstruction of its drainage pathway. Trace mucosal thickening in the right maxillary sinus without obstruction of its drainage pathway. Trace mucosal thickening in the sphenoid sinuses. Remaining paranasal sinuses are clear. 03/28/2016 - - Read by: Bhavna Madrigal MD Dictated Date/time: 03/28/16 16:12 Electronically Signed by: Bhavna Madrigal MD 03/28/16 16:16 FINAL REPORT [facility] Wrist wo contrast CT Wrist wo contrast CT EXAM: CT RIGHT WRIST WITHOUT CONTRAST DATE: 12/14/2015 12:14 PM CDT INDICATION: M25.531 Pain in right wrist COMPARISON: Wrist x-ray 11/13/2015 TECHNIQUE: Volumetric acquisition of the right wrist without contrast. Axial, sagittal and coronal reconstructions. IV contrast: None. DLP: 262 mGy-cm FINDINGS: Bones: No acute fracture or malalignment. There is mild subchondral cystic change and sclerosis within the radius at the radiocarpal joint. No erosions. The intercarpal and CMC joints are maintained. Soft tissues: No soft tissue swelling. No radiopaque foreign body or subcutaneous emphysema. No pneumarthrosis. IMPRESSION: 1. No acute fracture or malalignment. 2. Mild degenerative changes of the radiocarpal joint. 12/14/2015 - - This report was dictated by a Pathology Collector/Fellow. I have personally reviewed the images as well as the Resident's interpretation and agree with the findings. Read by: Ramiro Hearn MD Resident: Ramiro Hearn MD Dictated Date/time: 12/14/15 14:42 Electronically Signed by: Chito Epstein MD 12/15/15 10:55 FINAL REPORT [facility] cervical wo contrast CT Spine cervical wo contrast CT EXAM: CT CERVICAL SPINE WITHOUT CONTRAST DATE: 11/29/2015 1:00 PM CDT INDICATION: M54.2 Cervicalgia COMPARISON: Not available TECHNIQUE: Volumetric CT acquisition of the cervical spine without contrast. Axial, sagittal and coronal reconstructions. IV contrast: None. DLP: 368 mGy-cm FINDINGS: Vertebral alignment: Normal, including the craniocervical junction. Decreased disc space is noted at/C6 and C6/C7 with sclerosis of the posterior endplates of the C6/C7 level. C1-C2: Disk space is . Facets are normal. C2-C3: . Facets are normal. C3-C4: . Facets are normal. C4-C5: . Facets are hypertrophy on the right side causing no significant neural foraminal narrowing C5-C6: Posterior spur and disc complex is present, more prominent on the left side.. Facets are normal. C6-C7: Left-sided spur and disc complex is noted along causing [id number] left neural foraminal narrowing C7-T1: . Facets are normal. Neck soft tissues: IMPRESSION: 1. Facet joint hypertrophy at C4/C5. 2. Mild to moderate left-sided neural foraminal narrowing at C6/C7 secondary to spondylosis, asymmetric to the left. 11/29/2015 - - Read by: Alexandre Lerma Dictated Date/time: 11/29/15 14:48 Electronically Signed by: Aleaxndre Lerma 11/29/15 15:11 FINAL REPORT [facility] Wrist complete DX Wrist complete DX EXAM: X-RAY RIGHT WRIST 3 VIEWS DATE: 11/13/2015 2:00 PM CDT INDICATION: M25.531 Pain in right wrist COMPARISON: None TECHNIQUE: AP, lateral, and oblique views FINDINGS: No fractures, osseous malalignment, or osseous destructive lesions are seen. Right wrist joint spaces are well maintained. No periarticular erosive changes or other periarticular osseous or soft tissue abnormalities are seen. Mineralization is normal. IMPRESSION: Normal images of the right wrist. 11/13/2015 - - Read by: Myke Salinas MD Dictated Date/time: 11/13/15 15:00 Electronically Signed by: Myke Salinas MD 11/13/15 15:01 FINAL REPORT [facility] Vital Signs Vital Sign Value Date Comments Source Diastolic (mm Hg) 72 04/06/2018 [facility] Height 67 04/06/2018 [facility] Systolic (mm Hg) 110 04/06/2018 [facility] Weight 190 04/06/2018 [facility] Heart Rate 69 12/24/2016 [facility] Respitory Rate 18 12/24/2016 [facility] Systolic (mm Hg) 116 12/24/2016 [facility] Diastolic (mm Hg) 65 12/24/2016 [facility] Respitory Rate 20 12/24/2016 [facility] Systolic (mm Hg) 114 12/24/2016 [facility] Diastolic (mm Hg) 67 12/24/2016 [facility] Respitory Rate 20 12/23/2016 [facility] Systolic (mm Hg) 106 12/23/2016 [facility] Diastolic (mm Hg) 51 12/23/2016 [facility] BMI Calculated 30.08 12/23/2016 [facility] Height 167.64 cm 12/23/2016 [facility] Weight 84.545 12/23/2016 [facility] Temperature Oral (F) 98.1 F 12/23/2016 [facility] Heart Rate 71 12/23/2016 [facility] Systolic (mm Hg) 102 11/29/2016 [facility] Diastolic (mm Hg) 66 11/29/2016 [facility] Heart Rate 76 11/29/2016 [facility] Respitory Rate 18 11/29/2016 [facility] Temperature Oral (F) 98.2 F 11/29/2016 [facility] Temperature Oral (F) 98.4 F 11/29/2016 [facility] Heart Rate 79 11/29/2016 [facility] Systolic (mm Hg) 107 11/29/2016 [facility] Diastolic (mm Hg) 67 11/29/2016 [facility] Respitory Rate 18 11/29/2016 [facility] Respitory Rate 18 11/29/2016 [facility] Systolic (mm Hg) 103 11/29/2016 [facility] Diastolic (mm Hg) 62 11/29/2016 [facility] Heart Rate 79 11/29/2016 [facility] Temperature Oral (F) 98.5 F 11/29/2016 [facility] BMI Calculated 30.59 11/27/2016 [facility] Weight 85.966 11/27/2016 [facility] Height 167.64 cm 11/27/2016 [facility] Weight 85.455 11/27/2016 [facility] BMI Calculated 30.41 11/27/2016 [facility] Height 167.64 cm 11/27/2016 [facility] Diastolic (mm Hg) 76 11/01/2016 [facility] Height 67 11/01/2016 [facility] Systolic (mm Hg) 118 11/01/2016 [facility] Weight 190 11/01/2016 [facility] Encounters Location Location Details Encounter Type Encounter Number Reason For Visit Attending Provider ADM Date DC Date Status Source [facility] [place] [facility] [id number] Sol Flores 11/13/2015 11/14/2015 [facility] [place] [facility] [id number] Kenan Frankel 11/29/2015 11/30/2015 [facility] [place] [facility] [id number] Kenan Frankel 12/14/2015 12/15/2015 [facility] [place] [facility] [id number] Lei Godoy 03/28/2016 03/29/2016 [facility] [place] [facility] [id number] Sol Flores 04/02/2016 04/03/2016 [facility] [place] [facility] [id number] Elena Dunn 04/09/2016 04/10/2016 [facility] [place] - [facility] - [id number] Brandy Saeedroy, [employer]-C: [address] [place] [address], Ph. [id number] Brandy Saeedroy 11/01/2016 [facility] Inpatient [id number] Lemuel Carole 11/27/2016 11/29/2016 [facility] Emergency [id number] Ming Monkrosalie 12/23/2016 12/24/2016 [facility] Outpatient [id number] Dieudonne Meerasahib 02/28/2017 03/01/2017 [facility] Outpatient [id number] Dieudonne Meerasahib 06/10/2017 06/11/2017 [facility] Outpatient [id number] Dieudonne Meerasahib 10/07/2017 10/08/2017 [facility] [place] - [facility] - [id number] PONCE McleodC: [address] [place] [address], Ph. [id number] Chris La 04/06/2018 [facility] [place] [facility] - [id number] PONCE [facility]: [address] [place] [address], Ph. [id number] Chris La 04/06/2018 [facility] Procedures Procedure Code Date Perfomer Comments Source Hysterectomy 11/03/1989 [facility] Hysterectomy [id number] [facility]
--- OUTSIDE RECORDS SUMMARY | 2018-07-24 06:28 | XMS REPORT | Summary of Care ---
Author Author [facility] Outpatient Imaging [facility] Outpatient Imaging [facility] Address Unknown Phone Unavailable Encounter HQ Encntr_alias(FIN) [id number] Date(s): 11/13/15 - 11/13/15 [facility] Outpatient Imaging [facility] [address] [facility], [address] [phone] Discharge Disposition: Home Attending Physician: Sol Flores MD Vital Signs No data available for [...]
--- OUTSIDE RECORDS SUMMARY | 2018-07-24 06:29 | XMS REPORT | Summary of Care ---
Author Author [facility] Outpatient Imaging [facility] Outpatient [facility] Address Unknown Phone Unavailable Encounter HQ Encntr_alias(FIN) [id number] Date(s): 04/09/16 - 04/09/16 [facility] Outpatient Imaging [facility] [address] [facility] [place], [address] [place] [phone] Discharge Disposition: Home or Self Care Attending Physician: Elena Dunn MD Vital Signs No data available for [...]
--- OUTSIDE RECORDS SUMMARY | 2018-07-24 06:29 | XMS REPORT | Summary of Care ---
Author Author [facility] Organization [facility] Address Unknown Phone Unavailable Encounter HQ Kuldipr_eli(FIN) [id number] Date(s): 02/28/17 - 02/28/17 [facility] [address] [place] [address] [phone] Discharge Disposition: Home or Self Care Attending Physician: Dieudonne James MD Referring Physician: Dieudonne James MD Vital Signs No data available for this section Problem List Condition Effective Dates Status Health Status Informant Hyperlipidemia(Confi Resolved rmed) Type II diabetes 1960 Active mellitus(Confirmed) Allergies, Adverse Reactions, Alerts Substance Reaction Severity Status amoxicillin Active Medications No data available for this section Results No data available for this section Immunizations No data available for this section Procedures Procedure Date Related Diagnosis Body Site Hysterectomy Social History Social History Type Response Substance Abuse Use: None. Alcohol Frequency: 1-2 times per year. Smoking Status Never smoker; Exposure to Tobacco Smoke None; Cigarette Smoking Last 365 Days No; Reg Smoking Cessation Counseling No Assessment and Plan No data available for this section
--- OUTSIDE RECORDS SUMMARY | 2018-07-24 06:29 | XMS REPORT | Encounter Summary ---
Author Organization Unknown Address [address] [place] [address] Phone [phone] Reason for Visit Medical Complaint Instructions 1. Acute sinusitis Zithromax Z-Danny 250 mg tablet fluticasone 50 mcg/actuation nasal spray,suspension 2. Cough cough: care instructions Tessalon Perles 100 mg capsule Discussion Note Take an qzio-cuf-prvctqu pain medicine, such as acetaminophen (Tylenol) Read and follow all instructions on the label. If the doctor prescribed antibiotics, take them as directed. Do not stop taking them just because you feel better. You need to take the full course of antibiotics. Be careful when taking ugqu-nvr-snamqid cold or flu medicines and Tylenol at the same time. Plan of Care Reminders Provider Appointments None recorded. Lab None recorded. Referral None recorded. Procedures None recorded. Surgeries None recorded. Imaging None recorded. Medications Name Start Date alprazolam 0.25 mg tablet atorvastatin 80 mg tablet chlordiazepoxide-clidinium 5 mg-2.5 mg capsule TAKE ONE CAPSULE BY MOUTH EVERY 6 HOURS diclofenac 1.5 % topical drops Eliquis 5 mg tablet TAKE ONE (1) TABLET(S) BY MOUTH TWICE A DAY. EpiPen 2-Danny 0.3 mg/0.3 mL injection, auto-injector escitalopram 20 mg tablet Farxiga 5 mg tablet TAKE ONE (1) TABLET(S) BY MOUTH DAILY. fluticasone 50 mcg/actuation nasal spray,suspension Inhale 2 sprays to each nostril 2 x day at bedtime x 10 days gabapentin 300 mg capsule TAKE ONE (1) CAPSULE(S) BY MOUTH THREE TIMES A DAY. Jardiance 10 mg tablet OneTouch Ultra Test strips oxcarbazepine 300 mg tablet TAKE ONE (1) TABLET(S) BY MOUTH TWICE A DAY. Tessalon Perles 100 mg capsule Take 2 capsules 3 times a day by oral route as needed for 10 days. Tradjenta 5 mg tablet TAKE ONE (1) TABLET(S) BY MOUTH DAILY. tramadol 50 mg tablet TAKE ONE (1) TABLET(S) BY MOUTH TWICE A DAY. Verdeso 0.05 % topical foam APPLY A THIN LAYER TO FACE EVERY NIGHT AT BEDTIME FOR SEBORRHEA Zithromax Z-Danny 250 mg tablet TAKE 2 TABLETS (500 MG) BY ORAL ROUTE ONCE DAILY FOR 1 DAY THEN 1 TABLET (250 MG) BY ORAL ROUTE ONCE DAILY FOR 4 DAYS Medications Administered None recorded. Vitals Height Weight BMI Blood Pressure 5 ft 7 in 190 lbs 29.8 kg/m2 110/72 mm[Hg] Lab Results None recorded. Allergies Code Code System Name Reaction Severity Status Onset 723 RxNorm Amoxicillin Active Problems Name Status Onset Date Source Deep Venous Thrombosis Active 04/06/2018 Procedures Date Name Performed by 11/03/1989 Hysterectomy Information not available Vaccine List Vaccine Type influenza, injectable, quadrivalent 03/23/2018 influenza, unspecified formulation 03/02/2016 Tdap 06/02/2011 Social History Smoking Status Never Smoker Past Encounters 04/06/2018 Acute Sinusitis; Cough Chris La PA-C: [address] [place] [address], Ph. History of Present Illness Kyhyt-Jeokfzqhiz-Pyzrojk Reported By: Patient HPI: Location: head/sinuses. Quality: sore throat, nasal/sinus congestion, hacking cough, dry cough. Duration: 7days. Severity: mild. Onset/Timing: sudden. Context: no sick contacts, no foreign travel, non-smoker. Modifying factors: OTC medication. Associated Symptoms: no sputum production, no shortness of breath, no wheezing, no change in number of pillows needed to sleep at night, no sweats, no significant weight gain, no significant weight loss, no morning cough, no sore throat, no vomiting, no diarrhea, no rash, no nausea, no fever, muscle aches, headache Review of Systems Basic Reported By: Patient Constitutional: Constitutional: no fever Eyes: Eyes: no eye complaints Mcqp-Tfpb-Bhdtv-Throat: Ears: ear pain. Nose: nose/sinus problems. Mouth/Throat: no bleeding gums, no mouth complaints, no teeth problems, sore throat Cardiovascular: Cardiovascular: no chest pain, no shortness of breath, no known heart murmur Respiratory: Respiratory: no wheezing, no shortness of breath, cough Gastrointestinal: Gastrointestinal: no abdominal pain, no vomiting / diarrhea Genitourinary: Genitourinary: no urinary complaints, no discharge Musculoskeletal: Musculoskeletal: no muscle aches, no muscle weakness, no arthralgias/joint pain, no back pain Skin: Skin: no abnormal / changing mole, no jaundice, no rashes Neurologic: Neurologic: no loss of consciousness, no weakness, no numbness, no seizures, no dizziness, no headaches, headache Physical Exam Adult Basic Reported By: Patient Constitutional: General Appearance: healthy-appearing, well-nourished, well-developed, overweight. Level of Distress: NAD. Ambulation: ambulating normally Psychiatric: Mental Status: active and alert. Orientation: to time, to place, to person Eyes: Lids and Conjunctivae: non-injected, no discharge, no pallor. Pupils: PERRLA. EOM: EOMI. Sclerae: non-icteric. Vision: acuity grossly intact Fkj-Mfob-Jlkci-Throat: Ears: no lesions on external ear, no outer ear tenderness, EACs clear, TMs clear. Hearing: no hearing loss. Nose: no lesions on external nose, nares patent, no septal deviation, nasal passages clear, sinus tenderness, nasal discharge, nasal discharge--purulent, nasal discharge--rhinorrhea, post nasal drip. Lips, Teeth, and Gums: no mouth or lip ulcers, no bleeding gums, normal dentition. Oropharynx: moist mucous membranes, no erythema, no exudates, tonsils not enlarged; cobblestoning Neck: Neck: supple, trachea midline, no masses, FROM. Lymph Nodes: no cervical LAD, no supraclavicular LAD Lungs: Respiratory effort: no dyspnea, no tachypnea, no use of accessory muscles, no intercostal retractions. Auscultation: breath sounds normal Cardiovascular: Heart Auscultation: RRR, no murmurs
--- OUTSIDE RECORDS SUMMARY | 2018-07-24 06:29 | XMS REPORT | Summary of Care ---
Author Author [facility] Outpatient Imaging [facility] Outpatient Imaging [facility] Address Unknown Phone Unavailable Encounter HQ Encntr_alias(FIN) [id number] Date(s): 03/28/16 - 03/28/16 [facility] Outpatient Imaging [facility] [address] [facility], [address] [place] [phone] Discharge Disposition: Home or Self Care Attending Physician: Lei Godoy MD Vital Signs No data available for [...]
--- OUTSIDE RECORDS SUMMARY | 2018-07-24 06:29 | XMS REPORT | Summary of Care ---
Author Author [facility] Organization [facility] Address Unknown Phone Unavailable Encounter HQ Nahedntr_eli(FIN) [id number] Date(s): 10/07/17 - 10/07/17 [facility] [address] [place] [address]- [phone] Discharge Disposition: Home or Self Care Attending [...] Procedures Procedure Date Related Diagnosis Body Site Status Hysterectomy Completed Social History Social History Type Response Substance Abuse Use: None. Alcohol Frequency: 1-2 times per year. Smoking Status Never smoker; Exposure to Tobacco Smoke None; Cigarette Smoking Last 365 Days No; Reg Smoking Cessation Counseling No entered on: 12/23/16 Assessment and Plan No data available for this section
--- OUTSIDE RECORDS SUMMARY | 2018-07-24 06:29 | XMS REPORT | Summary of Care ---
Author Author [facility] Organization [facility] Address Unknown Phone Unavailable Encounter HQ Kuldipr_eli(FIN) [id number] Date(s): 06/10/17 - 06/10/17 [facility] [address] [place] [address]- Encounter Diagnosis Acute embolism and thrombosis of unspecified deep veins of lower extremity, nubiaa terdavid (Final) - 06/13/17 Discharge Disposition: Home or Self Care Attending [...]
--- OUTSIDE RECORDS SUMMARY | 2018-07-24 06:29 | XMS REPORT | Encounter Summary ---
Author Organization Unknown Address [address] [place] [address] Phone [phone] Reason for Visit Medical Complaint Instructions 1. Acute sinusitis Zithromax Z-Danny 250 mg tablet fluticasone 50 mcg/actuation nasal spray,suspension 2. Cough cough: care instructions Tessalon Perles 100 mg capsule Discussion Note Take an ycbs-rjg-fozrfbe pain medicine, such as acetaminophen (Tylenol) Read and follow all instructions on the label. If the doctor prescribed antibiotics, take them as directed. Do not stop taking them just because you feel better. You need to take the full course of antibiotics. Be careful when taking dapo-qog-pvoyoea cold or flu medicines and Tylenol at [...] Acute Sinusitis; Cough Chris La PA-C: [address] [place] [address], Ph. History of Present Illness Tfzfk-Semfupaykp-Srzfuld Reported By: Patient HPI: Location: head/sinuses. Quality: [...] no fever Eyes: Eyes: no eye complaints Kglz-Eyzm-Nexmj-Throat: Ears: ear pain. Nose: nose/sinus problems. Mouth/Throat: [...] EOMI. Sclerae: non-icteric. Vision: acuity grossly intact Nay-Wiqj-Frmlf-Throat: Ears: no lesions on external ear, no [...]
--- OUTSIDE RECORDS SUMMARY | 2018-07-24 06:29 | XMS REPORT | Summary of Care ---
Author Author [facility] Organization [facility] Address Unknown Phone Unavailable Encounter KATELYNN Williamson(DL) [id number] Date(s): 12/23/16 - 12/23/16 [facility] [address] [place] [address]- Discharge Diagnosis: Dyspnea, unspecified Discharge Disposition: Home or Self Care Attending Physician: Ming Cameron MD Vital Signs 1 2 3 Most recent to oldest [Reference Range]: 167.64 cm (12/23/16 2:18 PM) Height 98.1 DegF (12/23/16 2:18 PM) Temperature Oral [96.4-99.1 DegF] 116/65 mmHg (12/23/16 10:13 PM) 114/67 mmHg (12/23/16 7:00 PM) 106/51 mmHg (12/23/16 6:00 PM) Blood Pressure [90-140/60-90 mmHg] 18 BRMIN (12/23/16 10:13 PM) 20 BRMIN (12/23/16 7:00 PM) 20 BRMIN (12/23/16 6:00 PM) Respiratory Rate [14-20 BRMIN] 69 bpm (12/23/16 10:13 PM) 71 bpm (12/23/16 2:18 PM) Peripheral Pulse Rate [60-100 bpm] 84.545 kg (12/23/16 2:18 PM) Weight 30.08 m2 (12/23/16 2:18 PM) Body Mass Index Problem List Condition Effective Dates Status Health Status Informant Hyperlipidemia(Confi Resolved rmed) Type II diabetes 1960 Active mellitus(Confirmed) Allergies, Adverse Reactions, Alerts Substance Reaction Severity Status amoxicillin Active Medications No data available for this section Results ELECTROLYTES Most recent to 1 oldest [Reference Range]: Sodium Lvl [135-145 145 mEq/L mEq/L] (12/23/16 5:43 PM) Potassium Lvl 3.9 mEq/L [3.5-5.1 mEq/L] (12/23/16 5:43 PM) Chloride Lvl [95-109 106 mEq/L mEq/L] (12/23/16 5:43 PM) CO2 [24-32 mEq/L] 29 mEq/L (12/23/16 5:43 PM) AGAP [10.0-20.0 13.9 mEq/L mEq/L] (12/23/16 5:43 PM) CHEM PANEL Most recent to 1 oldest [Reference Range]: Creatinine Lvl 0.82 mg/dL [0.50-1.40 mg/dL] (12/23/16 5:43 PM) eGFR 80 mL/min/1.73m2 1 *NA* (12/23/16 5:43 PM) BUN [7-22 mg/dL] 10 mg/dL (12/23/16 5:43 PM) B/C Ratio [6-25] 12 (12/23/16 5:43 PM) Glucose Lvl [70-99 126 mg/dL mg/dL] *HI* (12/23/16 5:43 PM) Total Protein 8.0 g/dL [6.4-8.4 g/dL] (12/23/16 5:43 PM) Albumin Lvl [3.5-5.0 4.4 g/dL g/dL] (12/23/16 5:43 PM) Globulin [2.7-4.2 3.6 g/dL g/dL] (12/23/16 5:43 PM) A/G Ratio [0.7-1.6] 1.2 (12/23/16 5:43 PM) Calcium Lvl 9.8 mg/dL [8.5-10.5 mg/dL] (12/23/16 5:43 PM) ALT [0-65 unit/L] 73 unit/L *HI* (12/23/16 5:43 PM) AST [0-37 unit/L] 69 unit/L *HI* (12/23/16 5:43 PM) Alk Phos [39-136 137 unit/L unit/L] *HI* (12/23/16 5:43 PM) Bili Total [0.2-1.3 0.5 mg/dL mg/dL] (12/23/16 5:43 PM) 1Result Comment: The eGFR is calculated using the [...] from the National Kidney Disease Education Program ( NKDEP) which additionally recommends that when the eGFR is used in patients with extremes of body mass index for purposes of drug dosing, the eGFR should be mul tiplied by the estimated BMI. CARDIAC ENZYMES Most recent to 1 oldest [Reference Range]: Troponin-I 0.03 ng/mL [0.00-0.40 ng/mL] (12/23/16 5:43 PM) URINE AND STOOL Most recent to 1 oldest [Reference Range]: UA Turbidity [Clear] Clear (12/23/16 7:19 PM) UA Color Ltyellow *NA* (12/23/16 7:19 PM) UA pH [5.0-8.0] 6.0 (12/23/16 7:19 PM) UA Spec Grav 1.022 [<=1.030] (12/23/16 7:19 PM) UA Glucose [Negative 500 mg/dL mg/dL] *ABN* (12/23/16 7:19 PM) UA Blood [Negative] Negative (12/23/16 7:19 PM) UA Ketones [Negative Negative mg/dL mg/dL] *NA* (12/23/16 7:19 PM) UA Protein [Negative Negative mg/dL mg/dL] (12/23/16 7:19 PM) UA Urobilinogen <=1.0 mg/dL [0.1-1.0 mg/dL] *NA* (12/23/16 7:19 PM) UA Bili [Negative] Negative *NA* (12/23/16 7:19 PM) UA Leuk Est Negative [Negative] (12/23/16 7:19 PM) UA Nitrite Negative [Negative] (12/23/16 7:19 PM) UA WBC [0-5 /HPF] <1 /HPF (12/23/16 7:19 PM) UA Sq Epi [Few /LPF] Occasional /LPF *NA* (12/23/16 7:19 PM) HEMATOLOGY Most recent to 1 oldest [Reference Range]: WBC [3.7-10.4 K/CMM] 6.4 K/CMM (12/23/16 5:43 PM) RBC [4.20-5.40 4.84 M/CMM M/CMM] (12/23/16 5:43 PM) Hgb [12.0-16.0 g/dL] 14.6 g/dL (12/23/16 5:43 PM) Hct [36.0-48.0 %] 44.2 % (12/23/16 5:43 PM) MCV [80.0-98.0 fL] 91.4 fL (12/23/16 5:43 PM) MCH [27.0-31.0 pg] 30.2 pg (12/23/16 5:43 PM) MCHC [32.0-36.0 33.1 g/dL g/dL] (12/23/16 5:43 PM) RDW [11.5-14.5 %] 13.5 % (12/23/16 5:43 PM) Platelet [133-450 185 K/CMM K/CMM] (12/23/16 5:43 PM) MPV [7.4-10.4 fL] 7.5 fL (12/23/16 5:43 PM) Segs [45.0-75.0 %] 51.4 % (12/23/16 5:43 PM) Lymphocytes 40.5 % [20.0-40.0 %] *HI* (12/23/16 5:43 PM) Monocytes [2.0-12.0 6.2 % %] (12/23/16 5:43 PM) Eosinophils [0.0-4.0 1.5 % %] (12/23/16 5:43 PM) Basophils [0.0-1.0 0.4 % %] (12/23/16 5:43 PM) Segs-Bands # 3.3 K/CMM [1.5-8.1 K/CMM] (12/23/16 5:43 PM) Lymphocytes # 2.6 K/CMM [1.0-5.5 K/CMM] (12/23/16 5:43 PM) Monocytes # [0.0-0.8 0.4 K/CMM K/CMM] (12/23/16 5:43 PM) Eosinophils # 0.1 K/CMM [0.0-0.5 K/CMM] (12/23/16 5:43 PM) PT [12.0-14.7 13.1 seconds seconds] (12/23/16 5:43 PM) INR [0.85-1.17] 0.97 (12/23/16 5:43 PM) PTT [22.9-35.8 34.6 seconds seconds] (12/23/16 5:43 PM) Immunizations No data available for this section [...]
--- OUTSIDE RECORDS SUMMARY | 2018-07-24 06:29 | XMS REPORT | Summary of Care ---
Author Author [facility] Organization [facility] Address Unknown Phone Unavailable Encounter HQ Sean_eli(FIN) [id number] Date(s): 06/10/17 - 06/10/17 [facility] [address] [place] [address] [phone] Encounter Diagnosis Acute embolism and thrombosis of unspecified deep veins of lower extremity, bila teral (Final) - Discharge Disposition: Home or Self Care Attending [...]
--- OUTSIDE RECORDS SUMMARY | 2018-07-24 06:29 | XMS REPORT | Summary of Care ---
Author Author [facility] Organization [facility] Address Unknown Phone Unavailable Encounter [facility](DL) [id number] Date(s): 11/27/16 - 11/29/16 [facility] [id number] [place] [address]- Discharge Disposition: Home or Self Care Attending Physician: Lemuel Lam MD Admitting Physician: Lemuel Lam MD Vital Signs 1 2 3 Most recent to oldest [Reference Range]: 167.64 cm (11/27/16 3:19 PM) 167.64 cm (11/27/16 9:25 AM) Height 98.2 DegF (11/29/16 8:26 AM) 98.4 DegF (11/29/16 4:00 AM) 98.5 DegF (11/29/16 12:00 AM) Temperature Oral [96.4-99.1 DegF] 102/66 mmHg (11/29/16 8:26 AM) 107/67 mmHg (11/29/16 4:00 AM) 103/62 mmHg (11/29/16 12:00 AM) Blood Pressure [90-140/60-90 mmHg] 18 BRMIN (11/29/16 8:26 AM) 18 BRMIN (11/29/16 4:00 AM) 18 BRMIN (11/29/16 12:00 AM) Respiratory Rate [14-20 BRMIN] 76 bpm (11/29/16 8:26 AM) 79 bpm (11/29/16 4:00 AM) 79 bpm (11/29/16 12:00 AM) Peripheral Pulse Rate [60-100 bpm] 85.966 kg (11/27/16 3:19 PM) 85.455 kg (11/27/16 9:25 AM) Weight 30.59 m2 (11/27/16 3:19 PM) 30.41 m2 (11/27/16 9:25 AM) Body Mass Index Problem List Condition Effective Dates Status Health Status Informant Hyperlipidemia(Confi Resolved rmed) Type II diabetes 196 Active mellitus(Confirmed) Allergies, Adverse Reactions, Alerts Substance Reaction Severity Status amoxicillin Active Medications atorvastatin 80 mg, 2 tab, Route: PO, Drug form: TAB, Bedtime, Dosing Weight 85.455, kg, Star t date: 11/27/16 21:00:00 CDT, Duration: 30 day, Stop date: 12/26/16 21:00:00 CD T Notes: (Same as: Lipitor) Start Date: 11/27/16 Stop Date: 11/29/16 Status: Discontinued atorvastatin 80 mg oral tablet 80 mg=1 tab, PO, Bedtime, 0 Refill(s) Start Date: 11/27/16 Status: Ordered chlordiazePOXIDE-clidinium 5 mg-2.5 mg oral capsule (Librax) 2 cap, PO, TID-Before Meals, 0 Refill(s) Start Date: 11/27/16 Status: Ordered chlordiazePOXIDE-clidinium 5 mg-2.5 mg oral capsule (Librax) 2 cap, Route: PO, Drug Form: CAP, Dosing Weight 85.455, kg, TID-Before Meals, St art date: 11/27/16 16:30:00 CDT, Duration: 30 day, Stop date: 12/27/16 11:30:00 CDT Notes: (Same As: Librax) Start Date: 11/27/16 Stop Date: 11/29/16 Status: Discontinued citalopram 30 mg, PO, Daily, 0 Refill(s) Start Date: 11/27/16 Status: Ordered citalopram 30 mg, 3 tab, Route: PO, Drug form: TAB, Daily, Dosing Weight 85.455, kg, Start date: 11/28/16 9:00:00 CDT, Duration: 30 day, Stop date: 12/27/16 9:00:00 CDT Start Date: 11/28/16 Stop Date: 11/29/16 Status: Discontinued Dextrose 50% Syringe 12.5 gm, 25 mL, Route: IVP, Drug Form: INJ, Dosing Weight 85.455, kg, PRN, PRN B lood Glucose Results, Start date: 11/27/16 14:07:00 CDT, Duration: 30 day, Stop date: 12/27/16 14:06:00 CDT Start Date: 11/27/16 Stop Date: 11/29/16 Status: Discontinued Dextrose 50% Syringe 25 gm, 50 mL, Route: IVP, Drug Form: INJ, Dosing Weight 85.455, kg, PRN, PRN Blo od Glucose Results, Start date: 11/27/16 14:07:00 CDT, Duration: 30 day, Stop da te: 12/27/16 14:06:00 CDT Start Date: 11/27/16 Stop Date: 11/29/16 Status: Discontinued enoxaparin 80 mg, 0.8 mL, Route: SUB-Q, Drug form: INJ, [id number], Dosing Weight 85.455, kg, Start date: 11/27/16 15:00:00 CDT, Duration: 30 day, Stop date: 12/27/16 2:00:00 CDT Notes: Nurse to ensure documentation of patient education per anticoagulation po licy. (Same as: Lovenox) Start Date: 11/27/16 Stop Date: 11/29/16 Status: Discontinued glucagon 1 mg, Route: IM, Drug form: PDR/INJ, PRN, Dosing Weight 85.455, kg, PRN Blood Gl ucose Results, Start date: 11/27/16 14:07:00 CDT, Duration: 30 day, Stop date: 0 12/27/16 14:06:00 CDT Start Date: 11/27/16 Stop Date: 11/29/16 Status: Discontinued Glyxambi 10 mg-5 mg oral tablet 1 tab, PO, QAM, 0 Refill(s) Start Date: 11/27/16 Status: Ordered insulin aspart 10 unit, 0.1 mL, Route: SUB-Q, Drug form: SOLN, TID-Before Meals, Dosing Weight 85.455, kg, PRN Blood Glucose Results, Start date: 11/27/16 14:07:00 CDT, Durati on: 30 day, Stop date: 12/27/16 14:06:00 CDT Notes: Roll in palms of hands gently; Do not shake vigorously. (Same as: Mark Ken)"single patient use only"WASTE: F/P - Black; E - Municipal Trash Bin Stable f or 28 days at room temperature.Expires in days from Date Start Date: 11/27/16 Stop Date: 11/29/16 Status: Discontinued insulin aspart 2 unit, 0.02 mL, Route: SUB-Q, Drug form: SOLN, TID-Before Meals, Dosing Weight 85.455, kg, PRN Blood Glucose Results, Start date: 11/27/16 14:07:00 CDT, Durati on: 30 day, Stop date: 12/27/16 14:06:00 CDT Notes: Roll in palms of hands gently; Do not shake vigorously. (Same as: Mark Ken)"single patient use only"WASTE: F/P - Black; E - Municipal Trash Bin Stable f or 28 days at room temperature.Expires in days from Date Start Date: 11/27/16 Stop Date: 11/29/16 Status: Discontinued insulin aspart 6 unit, 0.06 mL, Route: SUB-Q, Drug form: SOLN, TID-Before Meals, Dosing Weight 85.455, kg, PRN Blood Glucose Results, Start date: 11/27/16 14:07:00 CDT, Durati on: 30 day, Stop date: 12/27/16 14:06:00 CDT Notes: Roll in palms of hands gently; Do not shake vigorously. (Same as: Mark Ken)"single patient use only"WASTE: F/P - Black; E - Municipal Trash Bin Stable f or 28 days at room temperature.Expires in days from Date Start Date: 11/27/16 Stop Date: 11/29/16 Status: Discontinued insulin aspart 8 unit, 0.08 mL, Route: SUB-Q, Drug form: SOLN, TID-Before Meals, Dosing Weight 85.455, kg, PRN Blood Glucose Results, Start date: 11/27/16 14:07:00 CDT, Durati on: 30 day, Stop date: 12/27/16 14:06:00 CDT Notes: Roll in palms of hands gently; Do not shake vigorously. (Same as: Mark Ken)"single patient use only"WASTE: F/P - Black; E - Municipal Trash Bin Stable f or 28 days at room temperature.Expires in days from Date Start Date: 11/27/16 Stop Date: 11/29/16 Status: Discontinued insulin aspart 4 unit, 0.04 mL, Route: SUB-Q, Drug form: SOLN, TID-Before Meals, Dosing Weight 85.455, kg, PRN Blood Glucose Results, Start date: 11/27/16 14:07:00 CDT, Durati on: 30 day, Stop date: 12/27/16 14:06:00 CDT Notes: Roll in palms of hands gently; Do not shake vigorously. (Same as: Mark Ken)"single patient use only"WASTE: F/P - Black; E - Municipal Trash Bin Stable f or 28 days at room temperature.Expires in days from Date Start Date: 11/27/16 Stop Date: 11/29/16 Status: Discontinued insulin aspart 5 unit, 0.05 mL, Route: SUB-Q, Drug form: SOLN, TID-Before Meals, Start date: 16:30:00 CDT, Duration: 30 day, Stop date: 12/27/16 11:30:00 CDT Notes: Roll in palms of hands gently; Do not shake vigorously. (Same as: Mark Ken)"single patient use only"WASTE: F/P - Black; E - Municipal Trash Bin Stable f or 28 days at room temperature.Expires in days from Date Start Date: 11/27/16 Stop Date: 11/29/16 Status: Discontinued Insulin regular 5 unit, Route: SUB-Q, TID-Before Meals, Dosing Weight 85.455, kg, Start date: 16:30:00 CDT, Duration: 30 day, Stop date: 12/27/16 11:30:00 CDT Start Date: 11/27/16 Stop Date: 11/27/16 Status: Deleted Lovenox 90 mg, 0.9 mL, Route: SUB-Q, Drug form: INJ, ONCE, Dosing Weight 85.455, kg, Laurie ority: STAT, Start date: 11/27/16 13:20:00 CDT, Stop date: 11/27/16 13:20:00 CDT Notes: Nurse to ensure documentation of patient education per anticoagulation po licy.(Same as: Lovenox) Start Date: 11/27/16 Stop Date: 11/27/16 Status: Completed MiraLax 17 gm, 1 pkt, Route: PO, Drug form: PWDR, Daily, Dosing Weight 85.966, kg, Start date: 11/28/16 9:00:00 CDT, Duration: 30 day, Stop date: 12/27/16 9:00:00 CDT Notes: Dissolve in 8 oz of water or juice.(Same as: Miralax) Start Date: 11/28/16 Stop Date: 11/29/16 Status: Discontinued morphine Sulfate 4 mg, Route: IVP, ONCE, Dosing Weight 85.455, kg, Priority: STAT, Start date: 11:44:00 CDT, Stop date: 11/27/16 11:44:00 CDT Start Date: 11/27/16 Stop Date: 11/27/16 Status: Completed morphine Sulfate 2 mg, 1 mL, Route: IV, Drug form: SOLN, Q4H, Dosing Weight 85.966, kg, PRN Pain Score 6-10, Start date: 11/27/16 21:12:00 CDT, Duration: 30 day, Stop date: 12/01 01/16 21:11:00 CDT Start Date: 11/27/16 Stop Date: 11/29/16 Status: Discontinued morphine Sulfate 4 mg, Route: IVP, ONCE, Dosing Weight 85.455, kg, Priority: STAT, Start date: 9:45:00 CDT, Stop date: 11/27/16 9:45:00 CDT Start Date: 11/27/16 Stop Date: 11/27/16 Status: Completed [place] 5/325 oral tablet 1 tab, Route: PO, Drug Form: TAB, Dosing Weight 85.966, kg, Q4H, PRN Pain Score 1-5, Start date: 11/27/16 17:13:00 CDT, Duration: 30 day, Stop date: 12/27/16 17 :12:00 CDT Notes: (Same as: [place] 325/5) Do not exceed 4gm/day of acetaminophen. Start Date: 11/27/16 Stop Date: 11/27/16 Status: Discontinued [place] 7.5/325 oral tablet 1 tab, Route: PO, Drug Form: TAB, Dosing Weight 85.966, kg, Q6H, PRN Pain Score 6-10, Start date: 11/27/16 21:12:00 CDT, Duration: 30 day, Stop date: 12/27/16 2 1:11:00 CDT Notes: Same as [place] 325-7.5mg Do not exceed 4gm/day of acetaminophen. Start Date: 11/27/16 Stop Date: 11/29/16 Status: Discontinued Tegretol 300 mg, 1.5 tab, Route: PO, Drug form: TAB, BID, Dosing Weight 85.455, kg, Start date: 11/27/16 17:00:00 CDT, Duration: 30 day, Stop date: 12/27/16 9:00:00 CDT Notes: With food. (Same As: Tegretol) Start Date: 11/27/16 Stop Date: 11/29/16 Status: Discontinued Tegretol 300 mg, PO, BID, 0 Refill(s) Start Date: 11/27/16 Status: Ordered tramadol 50 mg oral tablet 50 mg=1 tab, PO, Q6H, PRN Pain, X 5 day, # 20 tab, 0 Refill(s) Start Date: 11/29/16 Stop Date: 12/04/16 Status: Ordered Xarelto 15 mg, 1 tab, Route: PO, Drug form: TAB, Q12H, Dosing Weight 85.966, kg, Start d ate: 11/29/16 9:00:00 CDT, Stop date: 12/28/16 12:30:00 CDT Notes: (Same as: Xarelto)Administer with food Start Date: 11/29/16 Stop Date: 11/29/16 Status: Discontinued Xarelto Starter Pack 15 mg-20 mg oral tablet 1 tab, PO, BID-Meals, Take 15 mg tablets twice daily with food for 21 days. Kayla nning day 22,take one 20 mg tablet daily with food for the remainder of therapy. , X 30 day, # 1 pkt, 0 Refill(s) Start Date: 11/29/16 Stop Date: 12/29/16 Status: Ordered Zofran 4 mg, Route: IVP, Drug form: INJ, ONCE, Dosing Weight 85.455, kg, Priority: STAT , Start date: 11/27/16 9:45:00 CDT, Stop date: 11/27/16 9:45:00 CDT Start Date: 11/27/16 Stop Date: 11/27/16 Status: Completed Results ELECTROLYTES Most recent to 1 2 oldest [Reference Range]: Sodium Lvl [135-145 138 mEq/L mEq/L] (11/27/16 9:32 AM) Potassium Lvl 3.6 mEq/L [3.5-5.1 mEq/L] (11/27/16 9:32 AM) Chloride Lvl [95-109 102 mEq/L mEq/L] (11/27/16 9:32 AM) CO2 [24-32 mEq/L] 26 mEq/L (11/27/16 9:32 AM) AGAP [10.0-20.0 13.6 mEq/L mEq/L] (11/27/16 9:32 AM) CHEM PANEL Most recent to 1 2 oldest [Reference Range]: Creatinine Lvl 0.89 mg/dL [0.50-1.40 mg/dL] (11/27/16 9:32 AM) eGFR 73 mL/min/1.73m2 1 *NA* (11/27/16 9:32 AM) BUN [7-22 mg/dL] 12 mg/dL (11/27/16 9:32 AM) B/C Ratio [6-25] 13 (11/27/16 9:32 AM) Glucose Lvl [70-99 136 mg/dL mg/dL] *HI* (11/27/16 9:32 AM) Total Protein 7.6 g/dL [6.4-8.4 g/dL] (11/27/16 9:32 AM) Albumin Lvl [3.5-5.0 4.1 g/dL g/dL] (11/27/16 9:32 AM) Globulin [2.7-4.2 3.5 g/dL g/dL] (11/27/16 9:32 AM) A/G Ratio [0.7-1.6] 1.2 (11/27/16 9:32 AM) Calcium Lvl 8.9 mg/dL [8.5-10.5 mg/dL] (11/27/16 9:32 AM) ALT [0-65 unit/L] 22 unit/L (11/27/16 9:32 AM) AST [0-37 unit/L] 20 unit/L (11/27/16 9:32 AM) Alk Phos [39-136 157 unit/L unit/L] *HI* (11/27/16 9:32 AM) Bili Total [0.2-1.3 0.5 mg/dL mg/dL] (11/27/16 9:32 AM) Lipase Lvl [73-393 161 unit/L unit/L] (11/27/16 9:32 AM) 1Result Comment: The eGFR is calculated using [...] be mul tiplied by the estimated BMI. URINE AND STOOL Most recent to 1 2 oldest [Reference Range]: UA Turbidity [Clear] Clear (11/27/16 9:36 AM) UA Color Ltyellow *NA* (11/27/16 9:36 AM) UA pH [5.0-8.0] 6.0 (11/27/16 9:36 AM) UA Spec Grav 1.037 [<=1.030] *HI* (11/27/16 9:36 AM) UA Glucose [Negative 500 mg/dL mg/dL] *ABN* (11/27/16 9:36 AM) UA Blood [Negative] Negative (11/27/16 9:36 AM) UA Ketones [Negative Negative mg/dL mg/dL] *NA* (11/27/16 9:36 AM) UA Protein [Negative Negative mg/dL mg/dL] (11/27/16 9:36 AM) UA Urobilinogen <=1.0 mg/dL [0.1-1.0 mg/dL] *NA* (11/27/16 9:36 AM) UA Bili [Negative] Negative *NA* (11/27/16 9:36 AM) UA Leuk Est Negative [Negative] (11/27/16 9:36 AM) UA Nitrite Negative [Negative] (11/27/16 9:36 AM) UA Sq Epi [Few /LPF] Occasional /LPF *NA* (11/27/16 9:36 AM) IMMUNOLOGY Most recent to 1 2 oldest [Reference Range]: Cardiolipin IgA 0.9 APL-U/mL [<=19.9 APL-U/mL] (11/28/16 3:59 AM) Cardiolipin IgG <1.6 GPL-U/mL [<=19.9 GPL-U/mL] (11/28/16 3:59 AM) Cardiolipin IgM 1.2 MPL-U/mL [<=19.9 MPL-U/mL] (11/28/16 3:59 AM) Homocyst Tot 9.0 uMol/L [3.7-13.9 uMol/L] (11/28/16 3:59 AM) HEMATOLOGY Most recent to 1 2 oldest [Reference Range]: WBC [3.7-10.4 K/CMM] 5.3 K/CMM 5.8 K/CMM (11/28/16 9:54 AM) (11/27/16 9:32 AM) RBC [4.20-5.40 4.01 M/CMM 4.21 M/CMM M/CMM] *LOW* (11/27/16 9:32 AM) (11/28/16 9:54 AM) Hgb [12.0-16.0 g/dL] 12.5 g/dL 13.0 g/dL (11/28/16 9:54 AM) (11/27/16:32 AM) Hct [36.0-48.0 %] 37.5 % 38.5 % (11/28/16 9:54 AM) (11/27/16 9:32 AM) MCV [80.0-98.0 fL] 93.5 fL 91.6 fL (11/28/16 9:54 AM) (11/27/16:32 AM) MCH [27.0-31.0 pg] 31.1 pg 30.9 pg *HI* (11/27/16:32 AM) (11/28/16 9:54 AM) MCHC [32.0-36.0 33.2 g/dL 33.8 g/dL g/dL] (11/28/16 9:54 AM) (11/27/16:32 AM) RDW [11.5-14.5 %] 13.6 % 13.1 % (11/28/16 9:54 AM) (11/27/16:32 AM) Platelet [133-450 161 K/CMM 154 K/CMM K/CMM] (11/28/16 9:54 AM) (11/27/16:32 AM) MPV [7.4-10.4 fL] 7.5 fL 6.8 fL (11/28/16 9:54 AM) *LOW* (11/27/16:32 AM) Segs [45.0-75.0 %] 55.4 % 64.8 % (11/28/16 9:54 AM) (11/27/16:32 AM) Lymphocytes 35.4 % 25.6 % [20.0-40.0 %] (11/28/16 9:54 AM) (11/27/16 9:32 AM) Monocytes [2.0-12.0 6.2 % 7.3 % %] (11/28/16 9:54 AM) (11/27/16 9:32 AM) Eosinophils [0.0-4.0 2.7 % 1.9 % %] (11/28/16 9:54 AM) (11/27/16 9:32 AM) Basophils [0.0-1.0 0.3 % 0.4 % %] (11/28/16 9:54 AM) (11/27/16 9:32 AM) Segs-Bands # 3.0 K/CMM 3.8 K/CMM [1.5-8.1 K/CMM] (11/28/16 9:54 AM) (11/27/16 9:32 AM) Lymphocytes # 1.9 K/CMM 1.5 K/CMM [1.0-5.5 K/CMM] (11/28/16 9:54 AM) (11/27/16 9:32 AM) Monocytes # [0.0-0.8 0.3 K/CMM 0.4 K/CMM K/CMM] (11/28/16 9:54 AM) (11/27/16 9:32 AM) Eosinophils # 0.1 K/CMM 0.1 K/CMM [0.0-0.5 K/CMM] (11/28/16 9:54 AM) (11/27/16 9:32 AM) PT [12.0-14.7 13.1 seconds seconds] (11/27/16 9:32 AM) INR [0.85-1.17] 0.97 (11/27/16 9:32 AM) PTT [22.9-35.8 28.0 seconds seconds] (11/27/16 9:32 AM) dRVV Ratio [<=1.20] 1.09 (11/28/16 3:59 AM) Hex Phos N Negative [Negative] (11/28/16 3:59 AM) Lup Interp Negative for lupus anticoagulant by DRVV screen and hexagonal phospholipid neutralization test. If there is a strong clinical suspicion of lupus anticoagulant, additional testing, to include repeat studies at a clinically appropriate interval and anticardiolipin antibody assays, is recommended. Interpretation performed at [facility]. *NA* (11/28/16 3:59 AM) Immunizations No data available for this section Procedures Procedure Date Related Diagnosis Body Site Hysterectomy Social History Social History Type Response Substance Abuse Use: None. Alcohol Frequency: 1-2 times per year. Smoking Status Never smoker; Exposure to Tobacco Smoke None; Cigarette Smoking Last 365 Days No; Reg Smoking Cessation Counseling No Assessment and Plan Extracted from: Title: Clinical Document Author: Lemuel Lam MD Date: 11/29/16 Medicine Progress Daily Chief Complaint:DVT Subjective & Interval history: Patient seen and examined. pain improved Objective: Vital Signs (last 24 hrs) Last Charted Temp Oral98.2 DegF (NOV 29:) Heart Rate Fejkqafcpc25 bpm (NOV 29) Resp Rate 18 BRMIN (NOV 29) WWJ841 mmHg (NOV 29) DBP66 mmHg (NOV 29:) LaR916 % (NOV 29) Medications and labs reviewed as below. PHYSICAL EXAM: GENERAL: AAO NAD HEENT: NCAT, perrl, eomi NECK: Supple, midline trachea LUNGS: CTAB, No rales, rhonchi or wheezes. non labored breathing. CARDIOVASCULAR: S1, S2 normal. No M/G/R. ABDOMEN: Soft, ND, NT. BS + EXTREMITIES: No C/C , or Edema SKIN: No rashes. MUSCULOSKELETAL: Moving all extremities. Neuro: No new motor or sensory deficits IMPRESSION: Recurrent DVT PLAN & TREATMENT DC home on xatelto For details see orders. Plan of care discussed with the patient. Disposition: Input/Output RecordInOutBal 4hr Tot 1895 0 1895 4hr Tot 361 0 361 Scheduled Meds (7):atorvastatin, carBAMazepine (Tegretol), chlordiazePOXIDE- clidinium (chlordiazePOXIDE-clidinium 5 mg-2.5 mg oral capsule (Librax)), citalopram, enoxaparin, insulin aspart, polyethylene glycol 3350 (MiraLax) Unscheduled Meds: None PRN Meds (10):Dextrose 50% in Water IV (Dextrose 50% Syringe), Dextrose 50% in Water IV (Dextrose 50% Syringe), acetaminophen-hydrocodone ([place] 7.5/325 oral tablet), glucagon, insulin aspart, insulin aspart, insulin aspart, insulin aspart, insulin aspart, morphine Sulfate One Time Meds: None Continuous Infusions: None Labs (Last four charted values) WBC 5.3(NOV 28)5.8(NOV 27) Hgb 12.5(NOV 28)13.0(NOV 27) Hct 37.5(NOV 28)38.5(NOV 27) Plt 161(NOV 28)154(NOV 27) Na 138(NOV 27) K 3.6(NOV 27) CO2 26(NOV 27) Cl 102(NOV 27) Cr 0.89(NOV 27) BUN 12(NOV 27) Glucose Random H 136(NOV 27) Ca 8.9(NOV 27) PT 13.1(NOV 27) INR 0.97(NOV 27) PTT 28.0(NOV 27) Extracted from: Title: Clinical Document Author: Dieudonne James MD Date: 11/27/16 Hematology & Oncology Consultation Note By Dr. James Referring physician: Dr. Lam Reason for consultation: DVT HISTORY OF PRESENTING ILLNESS: Ms. Machado is a 56yo female with prior history of left leg DVT in 1989 after a hystercetomy, tummy tuck surgery in the post opetative period. She had an IVC Bird nest filter at thuan time and took anticoagulation for couple of years. More recently, she had a boil like swelling in her suprapubic area which was lanced by Dr. Whipple few days ago. She noted increasing heaviness and pain in the right thigh, which prompted hospital admission. In the ER, she had a CT abdomen and pelvis with dopplers which showed deep vein thrombosis within the right common femoral vein and proximal and mid superficial femoral vein, thrombus throughout the right greater saphenous vein and thrombus within the proximal left greater saphenous vein. Her CT of abdomen showed Chronic thrombosis of the infrarenal IVC associated [...] of the bilateral iliac system as well. Ms. Machado has been started on anticoagulation with lovenox. She does complain of leg pain. No recent SOB, weight loss. She's uptodate with mammogram and colonoscopies. ROS: Denies weight loss. No fatigue or night sweats. Denies any new skin lesions or rashes. Denies headaches, No blurring or change in vision. Denies hearing impairment, tinnitus or ear pain. Denies rhinorrhea, sinus pain or epistaxis. Denies throat pain or dysphagia. Denies bleeding or easy bruising. Denies any enlarged nodes, Denies dyspnea, cough, wheezing, hemoptysis. Denies chest pain or palpitations. Denies nausea, vomiting, abdominal pain, constipation, diarrhea, melena or hematochezia Denies dysuia or hematuria Denies confusion or disorientation o change in mental status. Past medical history: Hyperlipidemia Past surgical history: Hysterectomy Family history: No qualifying data available Social history: Alcohol Details: Frequency: 1-2 times per year. Tobacco Details: Use: Never smoker. Tobacco smoke exposure: None. Did the Patient Smoke Cigarettes Anytime During the Last 365 Days? No. Cessation Counseling Provided? No. Substance Abuse Details: Use: None. Medications (19) Active Scheduled Meds (6): 11/27/16 atorvastatin 80 mg PO Bedtime 11/27/16 carBAMazepine (Tegretol) 300 mg PO BID 11/27/16 chlordiazePOXIDE-clidinium (chlordiazePOXIDE-clidinium 5 mg-2.5 mg oral capsule (Librax)) 2 cap PO TID-Before Meals 11/28/16 citalopram 30 mg PO Daily 11/27/16 enoxaparin 80 mg SUB-Q [id number] 11/27/16 insulin aspart 5 unit SUB-Q TID-Before Meals Unscheduled Meds: None PRN Meds (9): 11/27/16 Dextrose 50% in Water IV (Dextrose 50% Syringe) 12.5 gm IVP PRN 11/27/16 Dextrose 50% in Water IV (Dextrose 50% Syringe) 25 gm IVP PRN 11/27/16 acetaminophen-hydrocodone ([place] 5/325 oral tablet) 1 tab PO Q4H 11/27/16 glucagon 1 mg IM PRN 11/27/16 insulin aspart 2 unit SUB-Q TID-Before Meals 11/27/16 insulin aspart 4 unit SUB-Q TID-Before Meals 11/27/16 insulin aspart 6 unit SUB-Q TID-Before Meals 11/27/16 insulin aspart 8 unit SUB-Q TID-Before Meals 11/27/16 insulin aspart 10 unit SUB-Q TID-Before Meals One Time Meds (4): 11/27/16 (Completed) enoxaparin (Lovenox) 90 mg SUB-Q ONCE 11/27/16 (Completed) morphine Sulfate 4 mg IVP ONCE 11/27/16 (Completed) morphine Sulfate 4 mg IVP ONCE 11/27/16 (Completed) ondansetron (Zofran) 4 mg IVP ONCE Continuous Infusions: None Allergies: amoxicillin Physical Examination: VitalsTmp(F)[id number] 11/27 14:[id number]/075840--- 11/27 13:5598.102682/573112--- 11/27 11:55----[id number]/[id number]--- 11/27 09:2598.706286/730346--- General: No acute distress. Alert and oriented x 3, Sclera anicteric; Conjunctiva without pallor. Pupils are equal, round, and reactive to light. Extraocular muscles are intact. No oral thrush. Posteroir pharynx looks normal without any inflammation. Neck is supple, no thyromegaly. Chest: Clear to auscultation bilaterally. Cardiovascular system: Regular rate and rhythm, normal S1 S2. Abdomen is soft and nontender, nondistended. Normal bowel sounds. No organomegaly. Extremities: Swelling and tenderness in both legs Neurologic examination: Alert, oriented x 3, normal speech. Gait is normal. No motor deficits. Skin: NO skin lesions or rashes. No palpable cervical, axillary or inguinal adenopathy. LABS: 24hr Labs 11/27 1630 Glucose POC89 11/27 0936 UA ColorLtyellow UA TurbidityClear UA Spec Grav1.037 H UA pH6.0 UA ProteinNegative UA Uvxppke906 UA KetonesNegative UA BiliNegative UA BloodNegative UA Urobilinogen<=1.0 UA NitriteNegative UA Leuk EstNegative UA Sq EpiOccasional 11/27 0932 Sodium Ghl870 Potassium Lvl3.6 Chloride Xmp918 CO226 AGAP13.6 Glucose Gsn125 H Creatinine Lvl0.89 BUN12 B/C Ratio13 Total Protein7.6 Albumin Lvl4.1 Globulin3.5 A/G Ratio1.2 Calcium Lvl8.9 ALT22 AST20 Alk Cklw263 H Bili Total0.5 eGFR73 Lipase Zam369 WBC5.8 RBC4.21 Hgb13.0 Hct38.5 MCV91.6 MCH30.9 MCHC33.8 RDW13.1 Ninavcij937 MPV6.8 L Segs64.8 Monocytes7.3 Goptlyblztt55.6 Eosinophils1.9 Basophils0.4 Segs-Bands #3.8 Lymphocytes #1.5 Monocytes #0.4 Eosinophils #0.1 PT13.1 INR0.97 PTT28.0 11/27 0920 Glucose IMR237 H Impression & Recommendations: 1. 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 Pain: related to DVT --start [place]
--- OUTSIDE RECORDS SUMMARY | 2018-07-24 06:29 | XMS REPORT | Encounter Summary ---
Author Organization Unknown Address [address] [place] [id number] Phone [phone] Reason for Visit Medical Complaint Instructions 1. Acute upper respiratory infection upper respiratory infection (cold): care instructions Bromfed DM 2 mg-30 mg-10 mg/5 mL syrup fluticasone 50 mcg/actuation nasal spray,suspension benzonatate 100 mg capsule Discussion Note Pt is in NAD; Verbalizes understanding of all instructions with no questions at this time. Plan of Care Patient Instructions stop Afrin nasal spray, mucinex and sudafed. Take fluticasone as needed for congestion. [facility] one spray in each nostril twice a day. Take a warm, steamy shower, blow your nose thereafter, and spray in each nostril. Tilt your head up for about 10 seconds and breath through your mouth. Do not sniff or snort the medication in or else the medication will go to your throat and not be absorbed appropriately. Alternate with Ibuprofen and acetaminophen every 4hrs as needed for pain/fever/headache Proper hydration and rest. Do not share any utensils/cups, no kissing, recommend hand washing after coughing/sneezing/blowing nose and cover face when you do so Take medications as prescribed. Return to clinic or follow up with your PCP within 2-3 days if symptoms worsen as discussed. Reminders Provider Appointments None recorded. Lab None recorded. Referral None recorded. Procedures None recorded. Surgeries None recorded. Imaging None recorded. Medications Name Start Date atorvastatin 80 mg tablet benzonatate 100 mg capsule Take 1 capsule 3 times a day by oral route as needed. benzonatate 200 mg capsule TAKE ONE (1) CAPSULE(S) BY MOUTH THREE TIMES A DAY NEEDED. Bromfed DM 2 mg-30 mg-10 mg/5 mL syrup Take 10 mL every 4 hours by oral route as needed. carbamazepine 200 mg tablet Celexa 40 mg tablet chlordiazepoxide-clidinium 5 mg-2.5 mg capsule citalopram 20 mg tablet diclofenac 1.5 % topical drops EpiPen 2-Danny 0.3 mg/0.3 mL injection, auto-injector fluticasone 50 mcg/actuation nasal spray,suspension Inhale 2 sprays to each nostril at bedtime x 10 days, then 1 spray to each nostril at bedtime x 7 days gabapentin 100 mg capsule Glyxambi 10 mg-5 mg tablet TAKE ONE (1) TABLET(S) BY MOUTH EVERY MORNING. levocetirizine 5 mg tablet TAKE ONE (1) TABLET(S) BY MOUTH EVERY DAY AT BEDTIME FOR 14 DAYS. naproxen 500 mg tablet OneTouch Ultra Test strips Symbicort 160 mcg-4.5 mcg/actuation HFA aerosol inhaler Medications Administered None recorded. Vitals Height Weight BMI Blood Pressure 5 ft 7 in 190 lbs 29.8 kg/m2 118/76 mm[Hg] Lab Results None recorded. Allergies Code Code System Name Reaction Severity Onset 723 RxNorm Amoxicillin Problems Name Status Onset Date Source Acute Suppurative Otitis Media without Spontaneous Rupture of Ear Drum Active Encounter Acute Sinusitis Active Encounter Acute Laryngitis Active Encounter Acute Bronchitis Active Encounter Allergic Rhinitis Active Encounter Procedures Date Name Performed by 11/03/1989 Hysterectomy Information not available Vaccine List Vaccine Type influenza, unspecified formulation 03/01/2016 Tdap 06/01/2011 Social History Smoking Status Never Smoker Past Encounters 11/01/2016 Acute Upper Respiratory Infection Brandy Ga, [facility]: [address] [place] [address], Ph. History of Present Illness [id number] Reported By: Patient HPI: Duration: 5 days. Context: no ill contacts, no tick/insect bites, no recent travel, no new medications. Associated Symptoms: no fever/chills, no headache, no muscle aches, no rash, no lethargy, cough, nasal passage blockage (stuffiness); B/L ear and pressure chest congestion. Modifying Factors OTC medication Note:
Review of Systems:ROS as noted in the HPI Review of Systems Basic Reported By: Patient Physical Exam Adult Basic, 14-21 Yr Male, Adult Female Complete Reported By: Patient Constitutional: General Appearance: healthy-appearing, well-nourished, well-developed. Level of Distress: NAD. Ambulation: ambulating normally Psychiatric: Mental Status: active and alert. Orientation: to time, to place, to person Giv-Hnww-Hxppb-Throat: Ears: no lesions on external ear, no outer ear tenderness, EACs clear, TMs clear. Hearing: no hearing loss. Nose: no lesions on external nose, nares patent, no septal deviation, nasal passages clear, no sinus tenderness, nasal discharge--rhinorrhea, post nasal drip; edematous nasal turbinates bilaterally. Lips, Teeth, and Gums: no mouth or lip ulcers, no bleeding gums, normal dentition. Oropharynx: moist mucous membranes, no erythema, no exudates, tonsils not enlarged Neck: Lymph Nodes: no cervical LAD Lungs: Respiratory effort: no dyspnea, no tachypnea, no use of accessory muscles, no intercostal retractions. Auscultation: breath sounds normal Cardiovascular: Heart Auscultation: RRR, no murmurs Neurologic: Gait and Station: normal gait, normal station
--- OUTSIDE RECORDS SUMMARY | 2018-07-24 06:29 | XMS REPORT | Summary of Care ---
Author Author [facility] Outpatient Imaging [facility] Address Unknown Phone Unavailable Encounter HQ Encntr_alias(FIN) [id number] Date(s): 04/02/16 - 04/02/16 [facility] Outpatient Imaging [facility] [address] [facility], [address] [place], [place] [address] [phone] Discharge Disposition: Home or Self Care Attending Physician: Sol Flores MD Vital Signs [...]
[2018-07-24 11:07] VITALS: BP 111/69
--- NOTE | 2018-07-29 13:38 | Operative Report ---
DATE OF PROCEDURE: 07/24/2018 SURGEON: Leo White DPM ROOM NUMBER: [facility]. 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 OPERATIONS: Arthrodesis of the second digit at the distal interphalangeal joint with 0.045 K-wire fixation. PROCEDURE IN DETAIL: The patient was taken to the operating room in a moderate sedation state, placed on the operating room table in supine position. Following induction of general anesthetic, the right lower extremity was elevated to 60 degrees to exsanguinate before applying a pneumatic tourniquet to 350 mmHg with hemostasis. The right lower extremity was placed on the operating room table arthrodesis of the second digit of the right foot. Two converging transverse incisions were made across the distal aspect of the distal interphalangeal joint of the right foot. The incision was deepened via sharp and blunt dissection below the dorsal capsular and extensor tendon surface. The extensor tenotomy and capsular surface was further incised and bone remodelled utilizing oscillating saw, a removal of both the head of the intermediate phalange and the base of the distal phalanx allowed for gymf-tn-cxly articulation of the same. The area was irrigated with copious amounts of sterile saline solution. A 0.045 K-wire was used to pin the digit in its appropriate alignment. The accomplished area was irrigated and closed with 3-0 Vicryl, 4-0 nylon. The appropriate compressive dressings were applied after a block of 0.5 Marcaine, Decadron-LA. The patient tolerated both anesthetic and procedure very well and is to return to see me within 1 week postoperatively . JOSE Donohue/EWA /[id number]
== END | disposition home or self-care (01) ==
LOC: OR 06:25
PROVIDERS: ATTEND Podiatrist Foot Surgery
DX: M20.41 Other hammer toe(s) (acquired), right foot (principal); M79.671 Pain in right foot; Z01.810 Encounter for preprocedural cardiovascular examination; Z01.812 Encounter for preprocedural laboratory examination; Z88.1 Allergy status to other antibiotic agents; F41.8 Other specified anxiety disorders; E78.5 Hyperlipidemia, unspecified; Z86.718 Personal history of other venous thrombosis and embolism; Z95.828 Presence of other vascular implants and grafts; E11.9 Type 2 diabetes mellitus without complications
CPT/HCPCS: 28285; 36415 ×2; 76000; 80048; 82948; 93005; J1100; J2001; J2250; J2405; J2704; C1713